=== PATIENT | female | born 1945 | race Caucasian/White ===

== ENCOUNTER → 2016-07-22 10:25 | Outpatient (CLI) | payer MEDICARE | END | disposition home or self-care (01) | LOC: D.CT 10:25 | DX: Q27.8 Other specified congenital malformations of peripheral vascular system (principal) ==

== ENCOUNTER 2019-09-29 08:40 | Outpatient (CLI) | payer MEDICARE ==
[~2019-09-29] VITALS: Ht 160 cm; Wt 47.7 kg
[2019-09-29] MEDS ORDERED: PREDNISONE20 MG PO (09:21)
[2019-09-29] MEDS ORDERED: LEVOFLOXACIN500 MG PO (09:21)
[2019-09-29] MEDS ORDERED: XANAX0.25 MG PO (09:22)
[2019-09-29] MEDS ORDERED: METOPROLOL TART25 MG PO (09:24)
[2019-09-29] MEDS ORDERED: PAXIL40 MG PO (09:25)
[2019-09-29] MEDS ORDERED: SPIRIVA18 MCG INH (09:26)
[2019-09-29] MEDS ORDERED: CRESTOR20 MG PO (09:26)
[2019-09-29] MEDS ORDERED: IPRAT-ALBUT 0.5-3 ML UPD (09:27)
[2019-09-29] MEDS ORDERED: CARTIA XT240 MG PO (09:27)
[2019-09-29] MEDS ORDERED: ZOFRAN8 MG PO (09:28)
[2019-09-29] MEDS ORDERED: PHENERGAN25 M1 PO (09:28)
[2019-09-29 09:33] VITALS: BP 110/41; Ht 160 cm; Wt 47.7 kg
[2019-09-29 09:39] LABS: ANION GAP 14.6 mmol/L (8-16); CALCIUM 9.6 mg/dL (8.5-10.1); CARBON DIOXIDE 27.1 mmol/L (21.0-32.0); CREATININE - SERUM 0.9 mg/dL (0.6-1.3); POTASSIUM - SERUM 3.7 mmol/L (3.5-5.1)
[2019-09-29 09:46] LABS: HEMATOCRIT 32.4 % (36.0-48.0); HEMOGLOBIN 9.5 g/dL (12-16); MCH 29.1 pg (26.0-34.0); MCHC 29.3 g/dL (31.0-37.0); MCV 99.4 fL (80.0-100.0); MEAN PLATELET VOLUME 8.6 fL (7.4-10.4); PLATELET COUNT 836 10x3/uL (130-400); RBC 3.26 10x6/uL (4.00-5.40); RDW 15.3 % (11.5-14.5); WBC 21.8 10x3/uL (4.8-10.8)
[2019-09-29 09:51] LABS: APTT 34.4 SECONDS (22.8-39.4); INR 1.16 (0.85-1.17); PROTIME 14.7 SECONDS (11.6-15.0)
--- NOTE | 2019-09-29 12:04 | NUR ---
1200-RECD TO ROOM FROM IR POST CT GUIDED THORACENTESIS. ALERT. IV PATENT. O2 ON AT 2L PER NC. RESP WITH EASE. DENIES PAIN/NAUSEA. R BACK DRESSING DRY AND INTACT.
--- NOTE | 2019-09-29 12:23 | NUR ---
1215-DOZES, AROUSES EASILY.
--- NOTE | 2019-09-29 12:51 | NUR ---
1245-FINGER FOOD TRAY TO ROOM. VSS. AWAKE AND ALERT. CL IN EASY REACH.VERY PLEASANT WITHOUT COMPLAINTS
[2019-09-29 13:11] LABS: ANISOCYTOSIS OCC; LYMPHOCYTES 3 % (15-50); MONOCYTES 10 % (2-11); NEUTROPHILS 87 % (40-80); PLATELET ESTIMATE INCREASED; ROULEAUX OCC
--- NOTE | 2019-09-29 13:28 | NUR ---
1315-TOLERATED TRAY. SLIGHT PAIN TO INCISION SITE. 08/21. VSS. XRAY HAS TAKEN CXR PER MD ORDERS. WILL CONTINUE TO MONITOR.
--- NOTE | 2019-09-29 14:49 | NUR ---
1415-VSS.DRESSING CDI.REPORTS DULL PAIN 3/10 TO INCISION SITE. VERY PLEASANT. REMOVED IV WITH CATH INTACT,DISPOSED INTO SHARPS.COVERED WITH GUAZE,SECURED WITH MEDIPORE TAPE. REVIEWED POST OPERATIVE INSTRUCTIONS VERBALIZED UNDERSTANDING
--- NOTE | 2019-09-29 14:50 | NUR ---
1439-ESCORTED OUT VIA W/C WITH EX AWAITING TO DRIVE HOME
[2019-09-29 15:58] LABS: EOS BF 1 %; MACROPHAGES BF 1 %; NEUT - BF 6 %
[2019-10-02 08:08] LABS: FUNGUS STAIN Final report (())
== END 2019-09-29 14:39 | disposition home or self-care (01) ==
LOC: D.SP 08:40 → D.CT 11:00 → D.SP 11:00
PROVIDERS: Radiology Diagnostic Radiology; ATTEND Internal Medicine Hematology & Oncology
DX: J90 Pleural effusion, not elsewhere classified (principal); J18.9 Pneumonia, unspecified organism; E86.0 Dehydration; D64.81 Anemia due to antineoplastic chemotherapy; C34.32 Malignant neoplasm of lower lobe, left bronchus or lung; D51.0 Vitamin B12 deficiency anemia due to intrinsic factor deficiency; I10 Essential (primary) hypertension; J44.9 Chronic obstructive pulmonary disease, unspecified

== ENCOUNTER 2019-09-30 17:26 | Inpatient (IN) | payer MEDICARE ==
[~2019-09-30] VITALS: Ht 160 cm; Wt 50.6 kg
[~2019-09-30 17:26] MED LIST: CARTIA XT240 MG PO; CRESTOR20 MG PO; IPRAT-ALBUT 0.5-3 ML UPD; LEVOFLOXACIN500 MG PO; METOPROLOL TART25 MG PO; PAXIL40 MG PO; PHENERGAN25 M1 PO; PREDNISONE20 MG PO; SPIRIVA18 MCG INH; XANAX0.25 MG PO; ZOFRAN8 MG PO
[2019-09-30 18:12] LABS: BASOPHILS 0 % (0-2); EOSINOPHILS 0.4 % (0-7); HEMATOCRIT 31.4 % (36.0-48.0); HEMOGLOBIN 9.2 g/dL (12-16); IMMATURE GRANULOCYTES 0.7 % (0-5); LYMPHOCYTES 5.3 % (15-50); MCH 29.1 pg (26.0-34.0); MCHC 29.3 g/dL (31.0-37.0); MCV 99.4 fL (80.0-100.0); MEAN PLATELET VOLUME 8.6 fL (7.4-10.4); NEUTROPHILS 83.6 % (40-80); RBC 3.16 10x6/uL (4.00-5.40); RDW 15.5 % (11.5-14.5)
[2019-09-30 18:13] LABS: PLATELET COUNT 616 10x3/uL (130-400); WBC 14.3 10x3/uL (4.8-10.8)
[2019-09-30 18:21] LABS: APTT 31.8 SECONDS (22.8-39.4); INR 1.1 (0.85-1.17); PROTIME 14.2 SECONDS (11.6-15.0)
[2019-09-30 19:14] VITALS: BP 125/59
[2019-09-30 19:20] LABS: CALC OSMOLALITY 280 mosm/kg (275-300); CALCIUM 8.6 mg/dL (8.5-10.1); CARBON DIOXIDE 23.6 mmol/L (21.0-32.0); CHLORIDE - SERUM 104 mmol/L (98-107); CREATININE - SERUM 0.9 mg/dL (0.6-1.3); GLUCOSE 93 mg/dL (74-106); SODIUM 140 mmol/L (136-145); UREA NITROGEN 17 mg/dL (7-18); eGFR NON AFRICAN AMERICAN 65 mL/min (90-120)
[2019-09-30 19:21] LABS: POTASSIUM - SERUM 4.5 mmol/L (3.5-5.1)
--- NOTE | 2019-09-30 19:30 | NUR ---
NOTED PT'S IV IN LEFT HAND HAD BECOME DISLODGED. CATHETER HANGING OUT. CATHETER WAS INTACT W/NO BLEEDING.
[2019-09-30 20:26] LABS: ALBUMIN 2.2 g/dL (3.4-5.0); ALKALINE PHOSPHATASE 72 U/L (30-120); ALT (SGPT) 17 U/L (10-68); BILIRUBIN - TOTAL 0.17 mg/dL (0.2-1.3); CKMB 0.3 U/L (0.0-3.6); CREATINE KINASE 24 UL (21-215); PRO BNP 4025 pg/mL (0-125); PROTEIN - SERUM 6.7 g/dL (6.4-8.2)
[2019-09-30 20:27] LABS: TROPONIN-I < 0.017 ng/mL (0.000-0.060)
[2019-09-30 20:46] VITALS: BP 130/66
--- NOTE | 2019-09-30 20:54 | NUR ---
ATTEMPTED TO CALL REPORT. NURSE UNAVAILABLE.
--- NOTE | 2019-09-30 21:01 | NUR ---
REPORT RECEIVED, PT CARE ASSUMED. AWAITING PT'S ARRIVAL TO ROOM 2123.
--- NOTE | 2019-09-30 21:17 | NUR ---
PT TO ROOM 2124 VIA STRETCHER ACCOMPANIED BY HOSPITAL STAFF.
[2019-09-30 23:54] VITALS: BP 117/46
[2019-10-01 01:32] VITALS: BP 117/46; BMI 18.8
[2019-10-01 04:00] VITALS: BP 127/61
--- NOTE | 2019-10-01 08:00 | NUR ---
HELPED AMBULATE PT TO BATHROOM WITH WALKER, STEADY GAIT NOTED. PT BACK TO BED. RR EVEN AND UNLABORED ON 2L NC. DENIES FUTHER NEEDS OR PAIN AT THIS TIME. CALL LIGHT WITHIN REACH. BED IN LOWEST POSITION. WILL CONTINUE TO MONITOR.
[2019-10-01 10:35] VITALS: BP 115/58
[2019-10-01 13:50] VITALS: BP 136/64
[2019-10-01 16:45] LABS: IRON 15 ug/dl (35-150); TOTAL IRON BIND CAPACITY 157 ug/dl (260-445); UNSAT IRON BIND CAPACITY 142 ug/dl (150-375)
[2019-10-01 16:46] LABS: % SATURATION 10 % (15-55)
--- NOTE | 2019-10-01 16:48 | NUR ---
I have reviewed this patient and I concur with the Shift Assessment completed by the Licensed Practical Nurse today this shift.
[2019-10-01 20:00] VITALS: BP 105/50
--- NOTE | 2019-10-01 21:38 | NUR ---
INITIAL ROUNDS COMPLETED AT 1915 HRS. PT DENIED ANY DISCOMFORT. ASSESSMENT COMPLETED AT 1950 HRS. 02 2LNC. ALERT AND ORIENTED TO PERSON, PLACE AND TIME. VASQUEZ. IV'S TO L WRIST AND RFA SL. BOTH PATENT. L CHEST INFUSAPORT NOTED. LUNGS DIMINISHED N BASES BILAT. DRESSING TO L BACK CLEAN, DRY AND INTACT. VASQUEZ. PALPABLE PERIPHERAL PULSES. PM MEDS GIVEN. PT CURRENTLY RESTING WITH EYES CLOSED. RESP EVEN AND REGULAR. SR UP X1, CALL LIGHT WITHIN REACH.
--- NOTE | 2019-10-01 23:34 | NUR ---
PT RESTING WTIH EYES CLOSED. RESP EVEN AND REGULAR. SR UP X1, CALL LIGHT WITHIN REACH.
--- NOTE | 2019-10-02 01:04 | NUR ---
PT RESTING WITH EYES CLOSED ON R SIDE. RESP EVEN AND REGULAR. SR UP X1, CALL LIGHT WITHIN REACH.
[2019-10-02 04:00] VITALS: BP 98/59
--- NOTE | 2019-10-02 04:22 | NUR ---
PT RESTING WITH EYES CLOSED. RESP EVEN AND REGULAR. SR UP X2, CALL LIGHT WITHIN REACH.
--- NOTE | 2019-10-02 06:19 | NUR ---
VSS THROUGHOUT NIGHT. PT DENIED ANY DISCOMFORT. NEEDS MET; WILL CONTINUE TO MONITOR.
[2019-10-02 06:36] LABS: BASOPHILS 0 % (0-2); EOSINOPHILS 0.7 % (0-7); HEMATOCRIT 29.3 % (36.0-48.0); HEMOGLOBIN 8.8 g/dL (12-16); IMMATURE GRANULOCYTES 0.4 % (0-5); LYMPHOCYTES 7.5 % (15-50); MCH 28.9 pg (26.0-34.0); MEAN PLATELET VOLUME 8.4 fL (7.4-10.4); MONOCYTES 9.1 % (2-11); NEUTROPHILS 82.3 % (40-80); PLATELET COUNT 574 10x3/uL (130-400); RBC 3.04 10x6/uL (4.00-5.40); WBC 13.1 10x3/uL (4.8-10.8)
[2019-10-02 06:49] LABS: ALBUMIN 1.9 g/dL (3.4-5.0); ANION GAP 10.8 mmol/L (8-16); BILIRUBIN - TOTAL 0.14 mg/dL (0.2-1.3); CALCIUM 8.6 mg/dL (8.5-10.1); CARBON DIOXIDE 25.8 mmol/L (21.0-32.0); CREATININE - SERUM 0.9 mg/dL (0.6-1.3); POTASSIUM - SERUM 3.6 mmol/L (3.5-5.1); PROTEIN - SERUM 6.3 g/dL (6.4-8.2)
[2019-10-02 07:05] LABS: MCV 96.4 fL (80.0-100.0)
--- NOTE | 2019-10-02 07:20 | NUR ---
RECIEVE REPORT. RESTING IN BED WITH EYES CLOSED. NO SIGNS OF DISTRESS. CONTINUE PLAN OF CARE AND SAFETY PRECAUTIONS.
[2019-10-02 08:00] VITALS: BP 108/42
[2019-10-02 14:03] VITALS: BP 85/34
[2019-10-02 14:24] VITALS: BMI 18.7
--- NOTE | 2019-10-02 16:28 | NUR ---
ALERT AND ORIENTED X4. SITTING UP IN BED. CONSENTS FOR BRONCHOSCOPY SIGNED ON CHART. DENIES ANY NEEDS AT THIS TIME. CONTINUE PLAN OF CARE AND SAFETY PRECAUTIONS.
[2019-10-02 18:27] VITALS: BP 87/63
[2019-10-02 22:09] VITALS: BP 110/48
[2019-10-03 00:54] VITALS: BP 96/40
--- NOTE | 2019-10-03 03:32 | NUR ---
RESTING WITH EYES CLOSED, RESPERATIONS EVEN, NO S/S DISTRESS NOTED.
[2019-10-03 04:34] LABS: BASOPHILS 0 % (0-2); EOSINOPHILS 0.1 % (0-7); HEMATOCRIT 28.4 % (36.0-48.0); HEMOGLOBIN 8.4 g/dL (12-16); IMMATURE GRANULOCYTES 0.4 % (0-5); LYMPHOCYTES 4.8 % (15-50); MCH 28.8 pg (26.0-34.0); MCHC 29.6 g/dL (31.0-37.0); MCV 97.3 fL (80.0-100.0); MEAN PLATELET VOLUME 8.6 fL (7.4-10.4); MONOCYTES 7.1 % (2-11); NEUTROPHILS 87.6 % (40-80); PLATELET COUNT 549 10x3/uL (130-400); RBC 2.92 10x6/uL (4.00-5.40); RDW 15.1 % (11.5-14.5); WBC 16.1 10x3/uL (4.8-10.8)
[2019-10-03 04:57] LABS: ALBUMIN 1.9 g/dL (3.4-5.0); ANION GAP 11.7 mmol/L (8-16); CARBON DIOXIDE 25.2 mmol/L (21.0-32.0); POTASSIUM - SERUM 3.9 mmol/L (3.5-5.1); PROTEIN - SERUM 6.1 g/dL (6.4-8.2)
[2019-10-03 04:58] LABS: BILIRUBIN - TOTAL 0.08 mg/dL (0.2-1.3)
[2019-10-03 05:05] VITALS: BP 104/40
[2019-10-03 09:31] VITALS: BP 118/53
--- NOTE | 2019-10-03 10:19 | NUR ---
I have reviewed this patient and I concur with the Shift Assessment completed by the Licensed Practical Nurse today this shift.
[2019-10-03 10:44] LABS: BILIRUBIN NEGATIVE (NEGATIVE); GLUCOSE NEGATIVE (NEGATIVE); KETONE NEGATIVE (NEGATIVE); NITRITE NEGATIVE (NEGATIVE); SPECIFIC GRAVITY 1.015 (1.005-1.020); UROBILINOGEN NORMAL (NORMAL)
[2019-10-03 12:24] VITALS: BP 109/59
--- NOTE | 2019-10-03 13:09 | EC ---
PATIENT:PRATEEK VELEZ DATE OF SERVICE: 09/30/19 SEX: F MEDICAL RECORD: [id number] DATE OF : [birth year] LOCATION:D.M2 D.212 AGE OF PATIENT: 74 ADMISSION DATE: 09/30/19 REFERRING PHYSICIAN: INTERPRETING PHYSICIAN: LATRICIA LAMBERT MD ECHOCARDIOGRAM REPORT ECHO CHARGES 4 ECHO COMPLETE Date: 10/02/19 CLINICAL DIAGNOSIS: DYSPNEA ECHOCARDIOGRAPHIC MEASUREMENTS (adult normal given) AC root (d.<3.7cm) 2.7 cm LV Septum d (<1.2 cm> 1.4 cm Valve Excursion 1.5 cm LV Septum (systole) 1.9 cm Left Atria (s.<4.0cm> 4.1 cm LVPW d(<1.2cm) 1.1 cm RV (d.<2.3cm) 2.1 cm LVPW (sytole) 1.9 cm LV diastole(<5.6CM) 4.4 cm MV E-F(>70mm/sec) cm LV systole 1.7 cm LVOT Diameter 1.5 cm MV exc.(>10mm) cm Est.ejection fraction (50-75%) % DOPPLER: LVIT cm/sec A 110 cm/sec E 133 cm/sec LA cm/sec RVSP 56.2 mmHg LVOT 103 cm/sec AOP1/2T 605.0m/s Asc. Ao 215 cm/sec RVOT 62.0 cm/sec RA cm/sec PA 102 cm/sec AV Gradient Peak 19.0 mmHg AV Mean 8.8 mmHg AV Area 0.8 cm MV Gradient Peak 9.7 mmHg MV Mean 2.5 mmHg MV Area cm COMMENTS: Gritting Machine Operator: 1 SHORTY BUNNOE Skatesman: 3 Dr. Brady TAPE# PACS Pericardial Effusion Y DATE OF SERVICE: Adequate 2D, color flow imaging, spectral Doppler, and M-Mode. LVH is present. LV internal dimension is normal. Wall motion is normal. EF is greater than or equal to 55%. Aortic valve is sclerotic; however, there is no evidence of stenosis by Doppler interrogation. There is moderate AI by color flow imaging. Left atrium is upper limits of normal and minimally dilated at 4.1 cm. Mitral valve shows no prolapse. Trace MR. Right-sided chambers are grossly normal. Trace TR. ECHOCARDIOGRAM REPORT [id number] PRATEEK VELEZ TRANSINT:[id number] Voice Confirmation ID: [id number] DOCUMENT ID: [id number] LATRICIA LAMBERT MD at 1309 CC: [id number] DICTATION DATE: 10/02/191116 PREPARER: 10/02/19 1157 ADM IN [facility] [address] [place] [address]
[2019-10-03 15:04] VITALS: BP 95/38
--- NOTE | 2019-10-03 15:24 | NUR ---
OT NOTE: PT COMPLETED UNSUPPORTED SITTING WITH SPV. PT COMPLETED BUE AROM WITH FUNCTIONAL TASKS. PT COMPLETED SELF FEEDING WITH SET UP.PT COMPLETED FACE HYGIENE WITH SET UP. [phone] THANK YOU,JEREMI WEAVER
[2019-10-03 19:52] VITALS: BP 113/51
[2019-10-04] VITALS: BP 118/48
--- NOTE | 2019-10-04 00:52 | NUR ---
I have reviewed this patient and I concur with the Shift Assessment completed by the Licensed Practical Nurse today this shift.
--- NOTE | 2019-10-04 03:53 | NUR ---
RESTING WITH EYES CLOSED, RESPERATIONS EVEN, NO S/S DISTRESS NOTED.
[2019-10-04 04:00] VITALS: BP 135/51
[2019-10-04 05:31] LABS: BASOPHILS 0.1 % (0-2); EOSINOPHILS 0.8 % (0-7); HEMOGLOBIN 8.3 g/dL (12-16); IMMATURE GRANULOCYTES 0.7 % (0-5); LYMPHOCYTES 5.1 % (15-50); MCHC 29.6 g/dL (31.0-37.0); MCV 97.9 fL (80.0-100.0); MEAN PLATELET VOLUME 8.1 fL (7.4-10.4); MONOCYTES 9.8 % (2-11); NEUTROPHILS 83.5 % (40-80); RBC 2.86 10x6/uL (4.00-5.40); RDW 15.5 % (11.5-14.5); WBC 13.8 10x3/uL (4.8-10.8)
[2019-10-04 05:42] LABS: PLATELET COUNT 418 10x3/uL (130-400)
[2019-10-04 05:56] LABS: ALBUMIN 1.8 g/dL (3.4-5.0); ANION GAP 9.8 mmol/L (8-16); BILIRUBIN - TOTAL 0.09 mg/dL (0.2-1.3); CALCIUM 7.6 mg/dL (8.5-10.1); CARBON DIOXIDE 26.8 mmol/L (21.0-32.0); CREATININE - SERUM 0.8 mg/dL (0.6-1.3); MAGNESIUM - SERUM 1.7 mg/dL (1.8-2.4); POTASSIUM - SERUM 3.6 mmol/L (3.5-5.1); PROTEIN - SERUM 5.9 g/dL (6.4-8.2)
--- NOTE | 2019-10-04 07:14 | NUR ---
REPORT RECEIVED FROM CLINICAL DOCUMENTATION DEVELOPER ANDPATIENT CARE ASSUMED. PATIENT LAYING IN BED ON BACK WITH HOB ELEVATED 20 DEGREES. PATIENT IS AWAKE, ALERT AND ORIENTED X 4. PATIENT DENIES ANY NEEDS 0R PAIN. WILL CONTINUE WITH PLAN OF CARE. SR UP X 2 BED IN LOW POSITION AND CALL LIGHT IN REACH.
[2019-10-04 09:11] VITALS: BP 111/53
--- NOTE | 2019-10-04 10:15 | NUR ---
PATIENT IS STABLE AND VSS. PATIENT DENIES ANY NEEDS OR PAIN. DR MADDOX IN ROOM. THIS NURSE RECEIVED INSTRUCTIONS TO CONFIRM WITH LAB REGARDING BRONCH BS FROM YESTERDAY AND GET PET SCAN RESULTS FROM [facility]. CONTACTED LAB AND SPECIMEN SLIDE BEING PROCESSED NOW. FAX TO [facility] SENT FOR RESULTS. WILL CONTINUE TO MONITOR. SR UP X 2 BED IN LOW POSITION AND CALL LIGHT IN REACH.
--- NOTE | 2019-10-04 10:21 | NUR ---
Nutrition Follow-up: S/p bronch yesterday. Pt reports being sore and a feeling of tightness following procedure yesterday. Did not eat breakfast this AM; only drank coffee and juice. Denies N/V. Refuses Ensure. Diet: Regular Wt: 111.3# (10/02) Last BM: 10/02 per pt Labs noted: Ca 7.6, Mg 1.7, Alb 1.8 Meds noted: Folate, Protonix, Prednisone -Encourage PO intake and honor food preferences. -Pt may benefit from appetite stimulant. -Monitor wt. -RD following.
[2019-10-04 13:09] LABS: ACID FAST SMEAR Negative (()); AFB SPECIMEN PROCESSING Concentration (())
[2019-10-04 13:09] LABS: ACID FAST SMEAR Negative (()); AFB SPECIMEN PROCESSING Concentration (())
--- NOTE | 2019-10-04 13:58 | NUR ---
OT NOTE: BED MOB WITH SPV; ABLE TO PERFORM LONG SITTING IN BED TO SERGIO SOCKS WITHOUT ASSIST; AMB TO BATHROOM WITH WALKER AND CGA; TRANSFERS WITH CGA; HYGIENE AND CLOTHING MGMT WITH CGA. SIMPLE GROOMING TASKS WITH SETUP; STANDING BALANCE ACT WITH WALKER AND CGA. CONTINUES WITH SOB DURING FUNCTIONAL ACT. REBECA MCNEAL, OTR/L [phone]
--- NOTE | 2019-10-04 14:23 | NUR ---
OT NOTE: PT COMPLETED BED MOB WITH MIN A/CGA. PT COMPLETED FACE HYGIENE WITH SET UP. [phone] THANK YOU,JEREMI WEAVER
--- NOTE | 2019-10-04 14:53 | MORECARE ---
CASE MANAGEMENT DISCHARGE SUMMARY PATIENT: PRATEEK VELEZ UNIT: [id number] ADM DATE: 09/30/19 AGE: 74 : 45 SEX: F ROOM/BED: D.1177 AUTHOR: YISEL CULLEN PHYSICIAN: REFERRING PHYSICIAN: RADHA VANN MD DATE OF SERVICE: 10/04/19 Discharge Plan Patient Name: PRATEEK VELEZ Facility: [facility]:[place] : 1945 Planned Disposition: Home Anticipated Discharge Date: Discharge Date: Expected LOS: Initial Reviewer: [email or web address] Initial Review Date: 09/30/2019 Generated: 10/04/19 3:52 pm Coverage Notice Reviewer: [id number] Yajaira Patterson Notice Issued Date-Time: 10/04/2019 14:15 Notice Type: IM Discharge Notice Notice Delivered To: Patient Relationship to Patient: Self School Attendance Secretary Name: Delivery Method: HAND - Hand Delivered Alisha Days: Prior Verbal Notification: Recipient Understood Notice: Yes Recipient Signature: Yes Med Rec Note Co-signed by Attending: Coverage Notice Comment: Patient Name: PRATEEK VELEZ Page [phone] at 1453 All edits/amendments must be made on the electronic document DICTATION DATE: 10/04/191451 EXPERIENCE SPECIALIST: LAURA 10/04/191451 RPT#: [id number] DC DATE: STATUS: ADM IN [place] [address] [place] [address] END OF REPORT
--- NOTE | 2019-10-04 15:00 | MORECARE ---
CASE MANAGEMENT DISCHARGE SUMMARY PATIENT: PRATEEK VELEZ UNIT: [id number] ADM DATE: 09/30/19 AGE: 74 : 45 SEX: F ROOM/BED: D.7254 AUTHOR: YISEL CULLEN PHYSICIAN: REFERRING PHYSICIAN: RADHA VANN MD DATE OF SERVICE: 10/04/19 Discharge Plan Patient Name: PRATEEK VELEZ Facility: [facility]:[place] : 1945 Planned Disposition: Home Anticipated Discharge Date: Discharge Date: Expected LOS: Initial Reviewer: [email or web address] Initial Review Date: 09/30/2019 Generated: 10/04/19 4:00 pm DCPIA - Discharge Planning Initial Assessment Updated by [email or web address]: Julia Patterson on 10/04/19 2:54 pm * Is the patient Alert and Oriented? Yes * How many steps to enter\exit or inside your home? * PCP ONIEL * [facility] * Preadmission Environment Home with Family * ADLs Independent * Other Equipment HOME / PORTABLE 02- LINCARE, NEBULIZER, WALKER * List name and contact numbers for known caregivers / representatives who currently or will assist patient after discharge: LIBAN DO - [phone] * Verbal permission to speak to the caregivers and representatives has been obtained from the patient. Yes * Community resources currently utilized None * Additional services required to return to the preadmission environment? No * Can the patient safely return to the preadmission environment? Yes * Has this patient been hospitalized within the prior 30 days at any hospital? No Coverage Notice Reviewer: [id number] - Julia Patterson Notice Issued Date-Time: 10/04/2019 14:15 Notice Type: IM Discharge Notice Notice Delivered To: Patient Relationship to Patient: Self Kitchen Food Assembler Name: Delivery Method: HAND - Hand Delivered Alisha Days: Prior Verbal Notification: Recipient Understood Notice: Yes Recipient Signature: Yes Med Rec Note Co-signed by Attending: Coverage Notice Comment: Last DP export: 10/04/19 1:53 p Patient Name: PRATEEK VELEZ Page [id number] at 1500 All edits/amendments must be made on the electronic document DICTATION DATE: 10/04/191499 PUBLIC HEALTH DENTIST: LAURA 10/04/191499 RPT#: [id number] DC DATE: STATUS: ADM IN [facility] [address] [place] [address] END OF REPORT
--- NOTE | 2019-10-04 15:07 | MORECARE ---
CASE MANAGEMENT DISCHARGE SUMMARY PATIENT: PRATEEK VELEZ UNIT: [id number] ADM DATE: 09/30/19 AGE: 74 : 45 SEX: F ROOM/BED: D.8459 AUTHOR: SUBHASH,DOC PHYSICIAN: REFERRING PHYSICIAN: RADHA VANN MD DATE OF SERVICE: 10/04/19 Discharge Plan Patient Name: PRATEEK VELEZ Facility: [facility]:[place] : 1945 Planned Disposition: Home Anticipated Discharge Date: Discharge Date: Expected LOS: Initial Reviewer: [email or web address] Initial Review Date: 09/30/2019 Generated: 10/04/19 4:07 pm Comments DCP- Discharge Planning Updated by [email or web address]: Julia Patterson on 10/04/19 2:[address] Patient Name: PRATEEK VELEZ Admission Status: ER Accout number: [id number] Admission Date: 09-30-2019 : 1945 Admission Diagnosis:DYSPNEA, UNSPECIFIED Attending: RADHA VANN Current LOS: 4 Anticipated DC Date: Planned Disposition: Home Primary Insurance: [employer] CHOICE PPO MCR ADVANT Discharge Planning Comments: CM spoke with patient to complete initial dc planning assessment. CM educated patient on the CM role and verbal consent given by patient to complete assessment. Patient lives currently with a friend and plans to return there upon discharge. CM discussed availability of home health, rehab services, and medical equipment. Patient has home / portable 02 ([facility]), Nebulizer and a walker. Patient doesn't currently have any HHS. Patient will have friend drive her home upon discharge. Patient denies any known discharge needs at this time. CM will continue to follow and will assist as needed with dc plans/needs. School Director: Julia Patterson DCPIA - Discharge Planning Initial Assessment Updated by [email or web address]: Julia Patterson on 10/04/19 2:54 pm * Is the patient Alert and Oriented? Yes * How many steps to enter\exit or inside your home? * PCP ONIEL * Pharmacy [facility] * Preadmission Environment Home with Family * ADLs Independent * Other Equipment HOME / PORTABLE 02- LINCARE, NEBULIZER, WALKER * List name and contact numbers for known caregivers / representatives who currently or will assist patient after discharge: LIBAN DO - [phone] * Verbal permission to speak to the caregivers and representatives has been obtained from the patient. Yes * Community resources currently utilized None * Additional services required to return to the preadmission environment? No * Can the patient safely return to the preadmission environment? Yes * Has this patient been hospitalized within the prior 30 days at any hospital? No Coverage Notice Reviewer: [email or web address] Yajaira Patterson Notice Issued Date-Time: 10/04/2019 14:15 Notice Type: IM Discharge Notice Notice Delivered To: Patient Relationship to Patient: Self Technical Rep Name: Delivery Method: HAND - Hand Delivered Alisha Days: Prior Verbal Notification: Recipient Understood Notice: Yes Recipient Signature: Yes Med Rec Note Co-signed by Attending: Coverage Notice Comment: Last DP export: 10/04/19 2:00 p Patient Name: PRATEEK VELEZ Page [id number] at 1507 All edits/amendments must be made on the electronic document DICTATION DATE: 10/04/19 1507 MANGA ARTIST: LAURA 10/04/19 1507 RPT#: [id number] DC DATE: STATUS: ADM IN [facility] [address] [place] [address] END OF REPORT
--- NOTE | 2019-10-04 15:21 | MORECARE ---
CASE MANAGEMENT DISCHARGE SUMMARY PATIENT: PRATEEK VELEZ UNIT: [id number] ADM DATE: 09/30/19 AGE: 74 : 45 SEX: F ROOM/BED: D.1785 AUTHOR: SUBHASH,DOC PHYSICIAN: REFERRING PHYSICIAN: RADHA VANN MD DATE OF SERVICE: 10/04/19 Discharge Plan Patient Name: PRATEEK VELEZ Facility: [facility]:[place] : 1945 Planned Disposition: Home Anticipated Discharge Date: Discharge Date: Expected LOS: Initial Reviewer: [email or web address] Initial Review Date: 09/30/2019 Generated: 10/04/19 4:20 pm Comments DCP- Discharge Planning Updated by [id number]: Julia Patterson on 10/04/19 2:[address] Patient Name: PRATEEK VELEZ Admission Status: ER Accout number: [id number] Admission Date: 09-30-2019 : 1945 Admission Diagnosis:DYSPNEA, UNSPECIFIED Attending: RADHA VANN Current LOS: 4 Anticipated DC Date: Planned Disposition: Home Primary Insurance: [employer] CHOICE PPO MCR ADVANT Discharge Planning Comments: CM spoke with patient to complete initial dc planning assessment. CM educated patient on the CM role and verbal consent given by patient to complete assessment. Patient lives currently with a friend and plans to return there upon discharge. CM discussed availability of home health, rehab services, and medical equipment. Patient has home / portable 02 ([facility]), Nebulizer and a walker. Patient doesn't currently have any HHS. Patient will have friend drive her home upon discharge. Patient denies any known discharge needs at this time. CM will continue to follow and will assist as needed with dc plans/needs. Hand Rounder: Julia Patterson Appended by Julia Patterson on 10/04/2019 15:15 CDT: D/C IMM signed 10/04/19 @ 1415 DCPIA - Discharge Planning Initial Assessment Updated by [id number]: Julia Patterson on 10/04/19 2:54 pm * Is the patient Alert and Oriented? Yes * How many steps to enter\exit or inside your home? * PCP ONIEL * Pharmacy [facility] * Preadmission Environment Home with Family * ADLs Independent * Other Equipment HOME / PORTABLE 02- LINCARE, NEBULIZER, WALKER * List name and contact numbers for known caregivers / representatives who currently or will assist patient after discharge: LIBAN DO - [phone] * Verbal permission to speak to the caregivers and representatives has been obtained from the patient. Yes * Community resources currently utilized None * Additional services required to return to the preadmission environment? No * Can the patient safely return to the preadmission environment? Yes * Has this patient been hospitalized within the prior 30 days at any hospital? No Coverage Notice Reviewer: [id number] Yajaira Patterson Notice Issued Date-Time: 10/04/2019 14:15 Notice Type: IM Discharge Notice Notice Delivered To: Patient Relationship to Patient: Self Hot Wire Glass Tube Cutter Name: Delivery Method: HAND - Hand Delivered Alisha Days: Prior Verbal Notification: Recipient Understood Notice: Yes Recipient Signature: Yes Med Rec Note Co-signed by Attending: Coverage Notice Comment: Last DP export: 10/04/19 2:07 p Patient Name: PRATEEK VELEZ Page 64107 at 1521 All edits/amendments must be made on the electronic document DICTATION DATE: 10/04/19 152 RELOCATION COUNSELOR: LAURA 10/04/19 1520 RPT#: [id number] DC DATE: STATUS: ADM IN [facility] [address] [place] [address] END OF REPORT
--- NOTE | 2019-10-04 15:27 | NUR ---
PATIENT STABLE AND UNCHANGED. WILL CONTINUE TO MONITOR. SR UP X 2 BED IN LOW POSITION AND CALL LIGHT IN REACH.
[2019-10-04 17:22] VITALS: Ht 160 cm; Wt 50.6 kg
--- NOTE | 2019-10-04 19:14 | NUR ---
REPORT RECIEVED AND ROUNDING COMPLETE. PATIENT LAYING IN BED IN HIGH FOWLERS, PATIENT HAS A LEFT FOREARM PIV THAT IS SALINE LOCKED, PIV PATENT AND FLUSHES EASILY, NO S/SX OF INFILTRATION. WEARINF NASAL CANNULA WITH O2 AT 2L WHICH IS A HOME DOSE. PATIENT STATES SHE HAS NO NEEDS AT THIS TIME.CALL LIGHT WITHNIN REACH AND BED IN LOWEST LOCKED POSITION.
[2019-10-04 20:00] VITALS: BP 107/47
[2019-10-04 23:44] VITALS: BP 103/40
[2019-10-05 04:00] VITALS: BP 109/40
[2019-10-05 06:31] LABS: BASOPHILS 0 % (0-2); EOSINOPHILS 0.7 % (0-7); HEMATOCRIT 27.1 % (36.0-48.0); HEMOGLOBIN 8.1 g/dL (12-16); IMMATURE GRANULOCYTES 0.6 % (0-5); LYMPHOCYTES 6.1 % (15-50); MCH 28.7 pg (26.0-34.0); MCHC 29.9 g/dL (31.0-37.0); MCV 96.1 fL (80.0-100.0); MEAN PLATELET VOLUME 8.1 fL (7.4-10.4); MONOCYTES 11.2 % (2-11); NEUTROPHILS 81.4 % (40-80); PLATELET COUNT 415 10x3/uL (130-400); RBC 2.82 10x6/uL (4.00-5.40); RDW 15.6 % (11.5-14.5); WBC 12.3 10x3/uL (4.8-10.8)
[2019-10-05 06:43] LABS: ALBUMIN 1.9 g/dL (3.4-5.0); BILIRUBIN - TOTAL 0.12 mg/dL (0.2-1.3); CALCIUM 8.1 mg/dL (8.5-10.1); CARBON DIOXIDE 29.5 mmol/L (21.0-32.0); CREATININE - SERUM 0.8 mg/dL (0.6-1.3); POTASSIUM - SERUM 3.5 mmol/L (3.5-5.1)
[2019-10-05 08:45] VITALS: BP 115/47
--- NOTE | 2019-10-05 12:08 | NUR ---
OT NOTE: PT INITALLY DOING WELL; BED MOB WITH SPV; TRANSFERS WITH SPV; SET UP FOR DONNING SOCKS AND GOWN. TOILETING WITH CGA. HOWEVER, UPON AMB INTO HALLWAY WITH GAIT BELT AND 02, SHE WAS ONLY ABLE TO AMB APPROX 40-50 FT BEFORE BECOMING VERY FATIGUED. 02 SAT AT 90% WITH USE OF 02..RECOUPERATED QUICKLY BACK UP TO 94%. WANTED TO SIT UP IN CHAIR. REBECA MCNEAL, OTR/L [phone]
[2019-10-05 14:15] VITALS: BP 113/45
--- NOTE | 2019-10-05 15:34 | NUR ---
OT NOTE: PT COMPLETED SUPINE TO SIT WITH CGA. PT COMPLETED EOB SITTING WITH SBA. PT COMPLETED SIT TO STAND WITH CGA. PT COMPLETED BUE AROM EXS AT EOB . PT EXHIBITED SOB AND STATED SHE WAS DIZZY. NOTIFIED NURSING. [phone] THANK YOU,JEREMI WEAVER
[2019-10-05 18:16] VITALS: BP 101/53
--- NOTE | 2019-10-05 18:17 | NUR ---
REPORT RECEIVED FROM DISTRIBUTION CENTER MANAGER AND PATIENT CARE ASSUMED. PATIENT LAYING IN BED ON RT SIDE WITH EYES CLOSED AND BREATHING EVENLY. WILL CONTINUE TO MONITOR. SR UP X 2 BED IN LOW POSITION AND CALL LIGHT IN REACH.
[2019-10-05 20:00] VITALS: BP 116/55
[2019-10-06] VITALS: BP 101/35
--- NOTE | 2019-10-06 02:57 | NUR ---
I have reviewed this patient and I concur with the Shift Assessment completed by the Licensed Practical Nurse today this shift.
[2019-10-06 04:00] VITALS: BP 100/40
--- NOTE | 2019-10-06 04:15 | NUR ---
RESTING WITH EYES CLOSED, RESPERATIONS EVEN, NO S/S DISTRESS NOTED.
[2019-10-06 05:56] LABS: BASOPHILS 0.1 % (0-2); EOSINOPHILS 0.3 % (0-7); HEMATOCRIT 27.7 % (36.0-48.0); HEMOGLOBIN 8.3 g/dL (12-16); IMMATURE GRANULOCYTES 0.7 % (0-5); LYMPHOCYTES 4.1 % (15-50); MCH 29.3 pg (26.0-34.0); MCV 97.9 fL (80.0-100.0); MEAN PLATELET VOLUME 8.3 fL (7.4-10.4); MONOCYTES 7.8 % (2-11); PLATELET COUNT 411 10x3/uL (130-400); RBC 2.83 10x6/uL (4.00-5.40); RDW 16.1 % (11.5-14.5)
[2019-10-06 06:25] LABS: ANION GAP 10.4 mmol/L (8-16); CARBON DIOXIDE 29.1 mmol/L (21.0-32.0); CREATININE - SERUM 0.9 mg/dL (0.6-1.3); POTASSIUM - SERUM 3.5 mmol/L (3.5-5.1); PROTEIN - SERUM 5.6 g/dL (6.4-8.2)
[2019-10-06 06:40] LABS: BILIRUBIN - TOTAL 0.05 mg/dL (0.2-1.3)
--- NOTE | 2019-10-06 07:10 | NUR ---
REPORT RECEIVED FROM TOP WADDY AND PATIENT CARE ASSUMED. PATIENT LAYING IN BED ON RT SIDE WITH EYES CLOSED AND BREATHING EVENLY. WILL CONTINUE WITH PLAN OF CARE. SR UP X 2 BED IN LOW POSITION AND CALL LIGHT IN REACH.
[2019-10-06 08:36] VITALS: BP 159/70
[2019-10-06] MEDS ORDERED: LEVOFLOXACIN500 MG PO (11:25)
--- NOTE | 2019-10-06 12:27 | MORECARE ---
CASE MANAGEMENT DISCHARGE SUMMARY PATIENT: PRATEEK VELEZ UNIT: [id number] ADM DATE: 09/30/19 AGE: 74 : 45 SEX: F ROOM/BED: D.0768 AUTHOR: SUBHASH,DOC PHYSICIAN: REFERRING PHYSICIAN: RADHA VANN MD DATE OF SERVICE: 10/06/19 Discharge Plan Patient Name: PRATEEK VELEZ Facility: [facility]:[place] : 1945 Planned Disposition: Home Anticipated Discharge Date: Discharge Date: Expected LOS: Initial Reviewer: [email or web address] Initial Review Date: 09/30/2019 Generated: 10/06/19 1:27 pm Comments DCP- Discharge Planning Updated by [email or web address]: Janice Briones on 10/06/19 11:[address] Patient Name: PRATEEK VELEZ Encounter No: [id number] : 1945 Primary Insurance: HUMANA [employer] PPO MCR ADVANT Anticipated DC Date: Planned Disposition: Home External Planned Provider: : DCP follow-up note: Patient and family in agreement with discharge plan. No changes to plan. Case management will follow and assist as needed. Janice Briones DCP- Discharge Planning Updated by [id number]: Julia Patterson on 10/04/19 2:[address] Patient Name: PRATEEK VELEZ Admission Status: ER Accout number: [id number] Admission Date: 09-30-2019 : 1945 Admission Diagnosis:DYSPNEA, UNSPECIFIED Attending: RADHA VANN Current LOS: 4 Anticipated DC Date: Planned Disposition: Home Primary Insurance: [employer]MANA CHOICE PPO MCR ADVANT Discharge Planning Comments: CM spoke with patient to complete initial dc planning assessment. CM educated patient on the CM role and verbal consent given by patient to complete assessment. Patient lives currently with a friend and plans to return there upon discharge. CM discussed availability of home health, rehab services, and medical equipment. Patient has home / portable 02 ([facility]), Nebulizer and a walker. Patient doesn't currently have any HHS. Patient will have friend drive her home upon discharge. Patient denies any known discharge needs at this time. CM will continue to follow and will assist as needed with dc plans/needs. Bilingual Recruiter: Julia Patterson Appended by Julia Patterson on 10/04/2019 15:15 CDT: D/C IMM signed 10/04/19 @ 1415 DCPIA - Discharge Planning Initial Assessment Updated by [email or web address]: Julia Patterson on 10/04/19 2:54 pm * Is the patient Alert and Oriented? Yes * How many steps to enter\exit or inside your home? * PCP ONIEL * Pharmacy [facility] [place] * Preadmission Environment Home with Family * ADLs Independent * Other Equipment HOME / PORTABLE 02- LINCARE, NEBULIZER, WALKER * List name and contact numbers for known caregivers / representatives who currently or will assist patient after discharge: LIBAN DO - [phone] * Verbal permission to speak to the caregivers and representatives has been obtained from the patient. Yes * Community resources currently utilized None * Additional services required to return to the preadmission environment? No * Can the patient safely return to the preadmission environment? Yes * Has this patient been hospitalized within the prior 30 days at any hospital? No Coverage Notice Reviewer: [id number] - Julia Patterson Notice Issued Date-Time: 10/04/2019 14:15 Notice Type: IM Discharge Notice Notice Delivered To: Patient Relationship to Patient: Self Automatic Pilot Mechanic Name: Delivery Method: HAND - Hand Delivered Alisha Days: Prior Verbal Notification: Recipient Understood Notice: Yes Recipient Signature: Yes Med Rec Note Co-signed by Attending: Coverage Notice Comment: Last DP export: 10/04/19 2:21 p Patient Name: PRATEEK VELEZ Page [phone] at 1227 All edits/amendments must be made on the electronic document DICTATION DATE: 10/06/19 1227 LACE PINNER: LAURA 10/06/19 1227 RPT#: [id number] DC DATE: STATUS: ADM IN [facility] [address] [place] [address] END OF REPORT
--- NOTE | 2019-10-06 12:35 | NUR ---
OT NOTE: PT FEELING MUCH BETTER TODAY. SHE HAD RECEIVED A SHOWER EARLIER. REPORTED THAT SHE GOT GOOD SLEEP LAST NIGHT AND GOOD MEDICAL REPORT. SHE WAS AMB IN ROOM WITH WALKER WITH SPV/MOD I; AMB GREATER THAN 150 FT WITH WALKER AND 02 FOR ENDURANCE. INDEP WITH ALL BED MOB AND TRANSFERS. PT HOPES TO GET TO GO HOME TODAY. REBECA MCNEAL, OTR/L [phone]
--- NOTE | 2019-10-06 15:30 | NUR ---
OT NOTE: PT COMPLETED SIT TO STAND WITH SBA/CGA. PT COMPLETED SIDE STEPS WITH CGA. PT COMPLETED BUE AROM EXS AT EOB WITH SBA. PT COMPLETED HAIR GROOMING WITH SET UP AT EOB. [phone] THANK YOU,JEREMI WEAVER
--- NOTE | 2019-10-08 16:09 | MORECARE ---
CASE MANAGEMENT DISCHARGE SUMMARY PATIENT: PRATEEK VELEZ UNIT: [id number] ADM DATE: 09/30/19 AGE: 74 : 45 SEX: F ROOM/BED: D.6754 AUTHOR: SUBHASH,DOC PHYSICIAN: REFERRING PHYSICIAN: RADHA VANN MD DATE OF SERVICE: 10/08/19 Discharge Plan Patient Name: PRATEEK VELZE Facility: [facility]:[place] : 1945 Planned Disposition: Home Anticipated Discharge Date: Discharge Date: 10/06/2019 Expected LOS: Initial Reviewer: [email or web address] Initial Review Date: 09/30/2019 Generated: 10/08/19 5:09 pm Comments DCP- Discharge Planning Updated by [email or web address]: Janice Briones on 10/06/19 11:[address] Patient Name: PRATEEK VELEZ Encounter No: [id number] : 1945 Primary Insurance: HUMANA CHOICE PPO MCR ADVANT Anticipated DC Date: Planned Disposition: Home External Planned Provider: : DCP follow-up note: Patient and family in agreement with discharge plan. No changes to plan. Case management will follow and assist as needed. Janice Briones DCP- Discharge Planning Updated by [id number]: Julia Patterson on 10/04/19 2:[address] Patient Name: PRATEEK VELEZ Admission Status: ER Accout number: [id number] Admission Date: 09-30-2019 : 1945 Admission Diagnosis:DYSPNEA, UNSPECIFIED Attending: RADHA VANN Current LOS: 4 Anticipated DC Date: Planned Disposition: Home Primary Insurance: HUMANA CHOICE PPO MCR ADVANT Discharge Planning Comments: CM spoke with patient to complete initial dc planning assessment. CM educated patient on the CM role and verbal consent given by patient to complete assessment. Patient lives currently with a friend and plans to return there upon discharge. CM discussed availability of home health, rehab services, and medical equipment. Patient has home / portable 02 ([employer]), Nebulizer and a walker. Patient doesn't currently have any HHS. Patient will have friend drive her home upon discharge. Patient denies any known discharge needs at this time. CM will continue to follow and will assist as needed with dc plans/needs. Broadcast Engineer: Julia Patterson Appended by Julia Patterson on 10/04/2019 15:15 CDT: D/C IMM signed 10/04/19 @ 1415 DCPIA - Discharge Planning Initial Assessment Updated by [email or web address]: Julia Patterson on 10/04/19 2:54 pm * Is the patient Alert and Oriented? Yes * How many steps to enter\exit or inside your home? * PCP ONIEL * Pharmacy [facility] * Preadmission Environment Home with Family * ADLs Independent * Other Equipment HOME / PORTABLE 02- [employer], NEBULIZER, WALKER * List name and contact numbers for known caregivers / representatives who currently or will assist patient after discharge: LIBAN DO - [phone] * Verbal permission to speak to the caregivers and representatives has been obtained from the patient. Yes * Community resources currently utilized None * Additional services required to return to the preadmission environment? No * Can the patient safely return to the preadmission environment? Yes * Has this patient been hospitalized within the prior 30 days at any hospital? No Coverage Notice Reviewer: [email or web address] - Julia Patterson Notice Issued Date-Time: 10/04/2019 14:15 Notice Type: IM Discharge Notice Notice Delivered To: Patient Relationship to Patient: Self Rag Cutting Machine Operator Name: Delivery Method: HAND - Hand Delivered Alisha Days: Prior Verbal Notification: Recipient Understood Notice: Yes Recipient Signature: Yes Med Rec Note Co-signed by Attending: Coverage Notice Comment: Last DP export: 10/06/19 11:27 a Patient Name: PRATEEK VELEZ Page 64602 at 1609 All edits/amendments must be made on the electronic document DICTATION DATE: 10/08/19 1609 GUARD IMMIGRATION: LAURA 10/08/19 1609 RPT#: [id number] DC DATE:10/06/19 STATUS: DIS IN [facility] [address] [place] [address] END OF REPORT
== END 2019-10-06 17:15 | disposition home or self-care (01) | DRG 193 ==
LOC: D.ER 17:26 → D.M2 19:50
PROVIDERS: Family Medicine; Internal Medicine Pulmonary Disease; ADMIT Internal Medicine Nephrology; ATTEND Internal Medicine Nephrology
PROC: 0BDG8ZX Extraction of Left Upper Lung Lobe, Via Natural or Artificial Opening Endoscopic, Diagnostic (ICD-10-PCS; 2019-10-03)
PROC: 0B988ZZ Drainage of Left Upper Lobe Bronchus, Via Natural or Artificial Opening Endoscopic (ICD-10-PCS; principal; 2019-10-03 11:00)
DX: J18.9 Pneumonia, unspecified organism (principal); J96.21 Acute and chronic respiratory failure with hypoxia; E43 Unspecified severe protein-calorie malnutrition; J90 Pleural effusion, not elsewhere classified; C34.90 Malignant neoplasm of unspecified part of unspecified bronchus or lung; Z68.1 Body mass index [BMI] 19.9 or less, adult; I10 Essential (primary) hypertension; E78.5 Hyperlipidemia, unspecified; G89.29 Other chronic pain; M54.9 Dorsalgia, unspecified; F41.8 Other specified anxiety disorders; J43.9 Emphysema, unspecified; D50.9 Iron deficiency anemia, unspecified

== ENCOUNTER 2019-10-14 21:54 | Inpatient (IN) | payer MEDICARE ==
[~2019-10-14] VITALS: Ht 160 cm; Wt 50.1 kg
--- NOTE | 2019-10-14 22:21 | NUR ---
DAVID HENRY FROM [facility] CALLED PRIOR TO PATIENT BEING TRANSPORTED TO ED AND STATED HE HAS BEEN CONTACTED BY PD ABOUT MRS. VELEZ. REQUESTED TO BE CALLED BACK WITH DISPOSITION OF PATIENT.
--- NOTE | 2019-10-14 22:45 | NUR ---
RT AT PT BEDSIDE FOR UPDRAFT.
[2019-10-14 22:46] LABS: BASOPHILS 0 % (0-2); EOSINOPHILS 2.1 % (0-7); HEMATOCRIT 29.3 % (36.0-48.0); HEMOGLOBIN 8.9 g/dL (12-16); IMMATURE GRANULOCYTES 0.3 % (0-5); LYMPHOCYTES 6.9 % (15-50); MCH 29.5 pg (26.0-34.0); MCHC 30.4 g/dL (31.0-37.0); MEAN PLATELET VOLUME 8.2 fL (7.4-10.4); MONOCYTES 10.3 % (2-11); NEUTROPHILS 80.4 % (40-80); PLATELET COUNT 441 10x3/uL (130-400); RBC 3.02 10x6/uL (4.00-5.40); RDW 16.6 % (11.5-14.5); WBC 9.5 10x3/uL (4.8-10.8)
[2019-10-14 22:49] LABS: INR 1.16 (0.85-1.17); PROTIME 14.8 SECONDS (11.6-15.0)
[2019-10-14 22:50] LABS: APTT 56.9 SECONDS (22.8-39.4)
[2019-10-14 22:52] LABS: CALC OSMOLALITY 275 mosm/kg (275-300); CALCIUM 8.5 mg/dL (8.5-10.1); CARBON DIOXIDE 27.5 mmol/L (21.0-32.0); CHLORIDE - SERUM 101 mmol/L (98-107); CREATININE - SERUM 0.9 mg/dL (0.6-1.3); GLUCOSE 104 mg/dL (74-106); SODIUM 138 mmol/L (136-145); UREA NITROGEN 13 mg/dL (7-18); eGFR NON AFRICAN AMERICAN 65 mL/min (90-120)
[2019-10-14 23:08] LABS: ALBUMIN 2.2 g/dL (3.4-5.0); ALKALINE PHOSPHATASE 63 U/L (30-120); ALT (SGPT) 19 U/L (10-68); BILIRUBIN - TOTAL 0.36 mg/dL (0.2-1.3); CKMB 0.2 U/L (0.0-3.6); CREATINE KINASE 20 UL (21-215); PRO BNP 629 pg/mL (0-125); PROTEIN - SERUM 6.8 g/dL (6.4-8.2); TROPONIN-I < 0.017 ng/mL (0.000-0.060)
[2019-10-14 23:13] LABS: % SATURATION 13 % (15-55); IRON 22 ug/dl (35-150); TOTAL IRON BIND CAPACITY 163 ug/dl (260-445); UNSAT IRON BIND CAPACITY 141 ug/dl (150-375)
--- NOTE | 2019-10-14 23:18 | NUR ---
[facility] CALLED AND INFORMED PATIENT IS BEING ADMITTED TO HOSPITAL
[2019-10-14 23:37] LABS: BILIRUBIN NEGATIVE (NEGATIVE); GLUCOSE NEGATIVE (NEGATIVE); KETONE NEGATIVE (NEGATIVE); NITRITE NEGATIVE (NEGATIVE); SPECIFIC GRAVITY 1.015 (1.005-1.020); UROBILINOGEN NORMAL (NORMAL)
--- NOTE | 2019-10-14 23:45 | NUR ---
LAB AT PT BEDSIDE. BLOOD CULTURES X2 OBTAINED AT THIS TIME.
[2019-10-14] MEDS ORDERED: CYCLOBENZAPRINE5 MG PO (23:59)
[2019-10-14] MEDS ORDERED: PROMETHAZINE W473 ML PO (23:59)
[2019-10-15] VITALS (7 sets, daily range): BP systolic 90–151; BP diastolic 40–59; BMI 18.6
--- NOTE | 2019-10-15 00:13 | NUR ---
PT ARRIVED ON UNIT VIA STRETCHER ESCORTED BY ER NURSE. TRANSFERRED TO BED. PT VERY PALE WITH DECREASED LOC...OPENING EYES BRIEFLY WHEN BEING TRANSFERRED. POSITIONED FOR COMFORT WITH BEDPADS DENEATH HER. ACTIVATED BED ALARM FOR SAFETY. SIDE RAILS UP X2 FOR SAFETY.
--- NOTE | 2019-10-15 00:38 | NUR ---
ADMISSION ASSESSMENT AND HISTORY COMPLETE, DESPITE PT BEING UNABLE TO WAKE UP ENOUGH TO ANSWER QUESTIONS.
--- NOTE | 2019-10-15 05:27 | NUR ---
PT BATHED AND ALL LINENS AND GOWN CHANGED. PT HAS REDNESS ON COCCYX AND BILATERAL HIPS....CUSHIONED WITH PILLOWS. BRIDGED HEELS AND PLACED SCD'S ON BLE PER ORDER.
--- NOTE | 2019-10-15 10:57 | NUR ---
PT RESTING IN BED WITH EYES CLOSED. RESP EVEN AND UNLABORED. AROUSES EASILY WITH NAME CALLED. DENIES PAIN OR FURTHER NEEDS AT THIS TIME. CL WITHIN REACH. ENCOURAGED TO CALL WITH NEEDS.
--- NOTE | 2019-10-15 12:50 | NUR ---
ASSISTED PT FROM BED TO BATHROOM X 1 ASSIST. PT KARINA WELL
[2019-10-15 15:21] LABS: CKMB 0.1 U/L (0.0-3.6); CREATINE KINASE 15 UL (21-215); TROPONIN-I < 0.017 ng/mL (0.000-0.060)
[2019-10-15 15:22] LABS: MAGNESIUM - SERUM 2.2 mg/dL (1.8-2.4)
--- NOTE | 2019-10-15 15:54 | NUR ---
PT TAKEN VIA W/C FOR CT SCAN. NO ACUTE DISTRESS NOTED.
--- NOTE | 2019-10-15 19:00 | NUR ---
BEDSIDE REPORT RECEIVED AND CARE OF PT ASSUMED. PT LYING ON RIGHT SIDE WITH EYES CLOSED. O2 IN USE VIA NC AT 2L. LEFT INFUSAPORT ACCESSED, AND PATENT WITH NS INFUSING AT KVO. WILL MONITOR FOR NEEDS.
--- NOTE | 2019-10-15 19:50 | NUR ---
CALLED RT PER PT REQUEST FOR PRN UPDRAFT TREATMENT.
--- NOTE | 2019-10-15 20:03 | NUR ---
PAGED MARCELA HAIRSTON TO GO OVER PT'S HOME MEDICATIONS. NEW ORDERS RECEIVED.
[2019-10-15 20:45] LABS: CKMB 0.1 U/L (0.0-3.6); CREATINE KINASE 18 UL (21-215); TROPONIN-I < 0.017 ng/mL (0.000-0.060)
--- NOTE | 2019-10-15 21:20 | NUR ---
HS MEDICATIONS GIVEN TO INCLUDE XANAX AND FLEXERIL PER PT REQUEST FOR PAIN AND ANXIETY. STARTED HTN MEDS TOMORROW PT WITH LOW BP TONIGHT.
[2019-10-16] VITALS: BP 88/38
[2019-10-16 02:21] LABS: BASOPHILS 0 % (0-2); EOSINOPHILS 3.6 % (0-7); HEMATOCRIT 26.3 % (36.0-48.0); HEMOGLOBIN 7.8 g/dL (12-16); IMMATURE GRANULOCYTES 0.3 % (0-5); LYMPHOCYTES 11.2 % (15-50); MCH 28.9 pg (26.0-34.0); MCHC 29.7 g/dL (31.0-37.0); MCV 97.4 fL (80.0-100.0); MEAN PLATELET VOLUME 7.9 fL (7.4-10.4); MONOCYTES 12.9 % (2-11); PLATELET COUNT 368 10x3/uL (130-400); RDW 16.2 % (11.5-14.5)
[2019-10-16 02:24] LABS: WBC 6.9 10x3/uL (4.8-10.8)
[2019-10-16 02:49] LABS: ALBUMIN 1.9 g/dL (3.4-5.0); ALKALINE PHOSPHATASE 55 U/L (30-120); BILIRUBIN - TOTAL 0.18 mg/dL (0.2-1.3); CALCIUM 7.9 mg/dL (8.5-10.1); CARBON DIOXIDE 27.4 mmol/L (21.0-32.0); CHLORIDE - SERUM 105 mmol/L (98-107); CKMB 0.5 U/L (0.0-3.6); CREATINE KINASE 16 UL (21-215); CREATININE - SERUM 0.8 mg/dL (0.6-1.3); GLUCOSE 93 mg/dL (74-106); MAGNESIUM - SERUM 1.8 mg/dL (1.8-2.4); POTASSIUM - SERUM 4.1 mmol/L (3.5-5.1); SODIUM 138 mmol/L (136-145); TROPONIN-I < 0.017 ng/mL (0.000-0.060); eGFR NON AFRICAN AMERICAN 74 mL/min (90-120)
[2019-10-16 02:55] LABS: ALT (SGPT) 10 U/L (10-68); CALC OSMOLALITY 274 mosm/kg (275-300); UREA NITROGEN 9 mg/dL (7-18)
[2019-10-16 04:00] VITALS: BP 106/43
[2019-10-16 08:02] VITALS: BP 100/40
--- NOTE | 2019-10-16 10:10 | NUR ---
SHE WALKED TO THE BATHROOM WITH STANDBY ASSIST, SHE IS UNSTEADY WHEN SHE FIRST GOT OUT OF BED. SHE IS EATING HER BREAKFAST SETTING UP ON THE SIDE OF THE BED.
[2019-10-16 11:45] VITALS: BP 96/42
[2019-10-16 12:30] VITALS: BMI 18.6
--- NOTE | 2019-10-16 15:43 | NUR ---
OT NOTE: PT COMPLETED ADL MOB WITH SBA. PT COMPLETED BED MOB WITH SPV. PT COMPLETED UE AROM AXS. PT DOING WELL. [phone] THANK YOU,JEREMI WEAVER
[2019-10-16 16:49] VITALS: BP 95/39
--- NOTE | 2019-10-16 19:00 | NUR ---
BEDSIDE REPORT RECEIVED AND CARE OF PT ASSUMED. PT LYING ON RIGHT SIDE WITH EYES CLOSED. O2 IN USE VIA NC AT 2L. TELEMETRY IN PLACE PER ORDER. WILL MONITOR FOR NEEDS.
--- NOTE | 2019-10-16 20:32 | NUR ---
HS MEDICATIONS GIVEN TO INCLUDE XANAX AND FLEXERIL PER REQUEST, PER PRN ORDERS. WILL CONTINUE TO MONITOR CLOSELY.
--- NOTE | 2019-10-16 20:45 | NUR ---
ASSISTED PT UP TO USE RESTROOM. REPLACED GOWN AND BED PAD. POSITIONED BACK IN BED FOR COMFORT.
[2019-10-16 21:50] VITALS: BP 89/40
[2019-10-17 00:03] VITALS: BP 97/40
[2019-10-17 05:22] LABS: BASOPHILS 0.1 % (0-2); EOSINOPHILS 2.9 % (0-7); HEMATOCRIT 25.4 % (36.0-48.0); IMMATURE GRANULOCYTES 0.3 % (0-5); LYMPHOCYTES 6.2 % (15-50); MCH 29.2 pg (26.0-34.0); MCHC 29.5 g/dL (31.0-37.0); MCV 98.8 fL (80.0-100.0); MEAN PLATELET VOLUME 8.2 fL (7.4-10.4); MONOCYTES 10.9 % (2-11); NEUTROPHILS 79.6 % (40-80); PLATELET COUNT 436 10x3/uL (130-400); RBC 2.57 10x6/uL (4.00-5.40); RDW 16.4 % (11.5-14.5); WBC 7.6 10x3/uL (4.8-10.8)
[2019-10-17 05:24] VITALS: BP 90/38
[2019-10-17 05:28] LABS: HEMOGLOBIN 7.5 g/dL (12-16)
[2019-10-17 05:40] LABS: ALBUMIN 1.8 g/dL (3.4-5.0); ANION GAP 7.6 mmol/L (8-16); BILIRUBIN - TOTAL 0.17 mg/dL (0.2-1.3); CALCIUM 7.9 mg/dL (8.5-10.1); CARBON DIOXIDE 26.1 mmol/L (21.0-32.0); CREATININE - SERUM 0.9 mg/dL (0.6-1.3); MAGNESIUM - SERUM 2.1 mg/dL (1.8-2.4); POTASSIUM - SERUM 3.7 mmol/L (3.5-5.1); PROTEIN - SERUM 5.9 g/dL (6.4-8.2)
--- NOTE | 2019-10-17 08:42 | NUR ---
SHE IS SLEEPING, BUT AROUSES TO MY VOICE. DENIES ANY PAIN OR NEEDS.
[2019-10-17 09:07] VITALS: BP 96/40
[2019-10-17 12:45] VITALS: BP 108/76
--- NOTE | 2019-10-17 15:47 | NUR ---
OT NOTE: PT RESTING IN AM.. ASSISTED PT TO BATHROOM WITH SBA; TOILET HYGIENE WITH SPV; IN ROOM AMBULATION WITH CGA AND USE OF FURNTIURE. ABLE TO STAND AT SINK TO PERFORM SINK HYGIENE WITH SBA. PROVIDED PT WITH RECLINER. SHE TRANSFERS WITH SBA. TOLERATED SITTING UP IN CHAIR FOR GREATER THAN 2 HRS. REBECA MCNEAL, OTR/L [phone]
[2019-10-17 16:24] VITALS: Ht 160 cm; Wt 50.1 kg
[2019-10-17 17:47] VITALS: BP 115/55
--- NOTE | 2019-10-17 20:15 | NUR ---
PT AWAKE AND ALERT NO SIGNS OF DISTRESS NOTED. RESPIRATIONS EVEN AND UNLABORED. RESPIRATORY IS AT BEDSIDE. PT HAS NO COMPLAINTS AT THIS TIME. CALL LIGHT WITH IN REACH. PT ENCOUARGED TO CALL FOR HELP WHEN NEEDED. WILL CONTINUE TO MONITOR
--- NOTE | 2019-10-17 20:43 | NUR ---
pt c/o muscle spasms prn medication given. call light with in reach
[2019-10-17 21:42] VITALS: BP 122/50
[2019-10-18 00:23] VITALS: BP 143/67
--- NOTE | 2019-10-18 01:50 | NUR ---
ASSIST PT AND MEAT WASHER WITH BATH AND LIENEN CHANGE. PT TOLERATED WELL. PT IS NPO FOR PROCEDURE IN THE MORNING. BED ALARM ON AND ACTIVE. CALL LIGHT WITH IN REACH. PT ENCOURAGED TO CALL FOR HELP WHEN NEEDED AND WHEN GETTING IN AND OUT OF BED. CALL LIGHT WITH IN REACH. WILL CONTINUE TO MONITOR
--- NOTE | 2019-10-18 03:15 | NUR ---
I have reviewed this patient and I concur with the Shift Assessment completed by the Licensed Practical Nurse today this shift.
[2019-10-18 05:55] LABS: BASOPHILS 0 % (0-2); EOSINOPHILS 4.7 % (0-7); HEMATOCRIT 27.3 % (36.0-48.0); IMMATURE GRANULOCYTES 0.2 % (0-5); LYMPHOCYTES 6.6 % (15-50); MCH 28.9 pg (26.0-34.0); MCHC 29.3 g/dL (31.0-37.0); MCV 98.6 fL (80.0-100.0); MEAN PLATELET VOLUME 8.2 fL (7.4-10.4); MONOCYTES 11.8 % (2-11); NEUTROPHILS 76.7 % (40-80); PLATELET COUNT 438 10x3/uL (130-400); RBC 2.77 10x6/uL (4.00-5.40); RDW 16.1 % (11.5-14.5); WBC 8.4 10x3/uL (4.8-10.8)
[2019-10-18 06:04] VITALS: BP 137/60
[2019-10-18 06:29] LABS: ALBUMIN 1.9 g/dL (3.4-5.0); ANION GAP 9.4 mmol/L (8-16); BILIRUBIN - TOTAL 0.16 mg/dL (0.2-1.3); CALCIUM 8.1 mg/dL (8.5-10.1); CARBON DIOXIDE 26.4 mmol/L (21.0-32.0); CREATININE - SERUM 0.8 mg/dL (0.6-1.3); MAGNESIUM - SERUM 1.8 mg/dL (1.8-2.4); POTASSIUM - SERUM 3.8 mmol/L (3.5-5.1); PROTEIN - SERUM 6.2 g/dL (6.4-8.2)
--- NOTE | 2019-10-18 07:30 | NUR ---
RECEIVED PT FROM CHARGE AIDE. UPON ENTERING PT HAS EYES CLOSED. REPORTED TO BE ALERT AND ORIENTED. PT HAS A LEFT INFUSAPORT, THEY DO NOT DRAW BLOOD FROM IT. PT IS NPO FOR A BRONCH AND STENT TODAY. 2L O2 VIA NASAL CANNULA. PT HAS TELMETRY. BED IN LOWEST POSITION, BED RAILS X2, CALL LIGHT WITHIN REACH. WILL CONTINUE TO MONITOR.
[2019-10-18 09:47] VITALS: BP 134/64
--- NOTE | 2019-10-18 10:57 | NUR ---
PT RESTING IN BED. PT REPORTS SHE GOT UP TO THE BATHROOM AND BACK TO BED. DENIE ANY NEEDS. WILL CONTINUE TO MONITOR.
--- NOTE | 2019-10-18 11:11 | NUR ---
PT CURRENTLY RESTING IN BED WITH EYES CLOSED, BREATING EVEN AND UNLABORED. NO S/S OF DISTRESS NOTED AT THIS TIME. WILL CONTINUE TO MONITOR.
--- NOTE | 2019-10-18 12:46 | NUR ---
ADMINISTERED PRE-OP MEDICATIONS PER REQUEST. PT IS READY FOR PROCEDURE. RESTING COMFORTABLY IN BED. DENIES ANY NEEDS AT THIS TIME. SOPHIA CONTINUE TO MONTIOR.
[2019-10-18 13:17] VITALS: BP 125/64
--- NOTE | 2019-10-18 14:07 | NUR ---
Coccyx and hips were red (blanchable) on admission. Mepilex was applied to bottom for protection. Pt is being turned/repositioned q 2 hours while in bed. Wound care continues to monitor.
--- NOTE | 2019-10-18 14:17 | NUR ---
OT NOTE: PT AWAITING PROCEDURE IN AM.. OUT FOR PROCEDURE IN PM REBECA MCNEAL, OTR/L
--- NOTE | 2019-10-18 14:38 | MORECARE ---
CASE MANAGEMENT DISCHARGE SUMMARY PATIENT: PRATEEK VELEZ UNIT: [id number] ADM DATE: 10/14/19 AGE: 74 : 45 SEX: F ROOM/BED: D.2208 AUTHOR: YISEL CULLEN PHYSICIAN: REFERRING PHYSICIAN: RADHA VANN MD DATE OF SERVICE: 10/18/19 Discharge Plan Patient Name: PRATEEK VELEZ [facility] [facility] 1945 Planned Disposition: Anticipated Discharge Date: Discharge Date: Expected LOS: Initial Reviewer: [email or web address] Initial Review Date: 10/15/2019 Generated: 10/18/19 3:38 pm Comments DCP- Discharge Planning Updated by [email or web address]: Destinee Long on 10/18/19 1:[address] Patient Name: PRATEEK VELEZ Admission Status: ER Accout number: [id number] Admission Date: 10-14-2019 : 1945 Admission Diagnosis:PNEUMONIA, UNSPECIFIED ORGANISM Attending: RADHA VANN Current LOS: 4 Anticipated DC Date: Planned Disposition: Primary Insurance: HUMANA CHOICE PPO MCR ADVANT Discharge Planning Comments: PATIENT IS IN OR AT THIS TIME, I WILL COME BACK TO ASSESS. Curing Bin Operator: Destinee Long Patient Name: PRATEEK VELEZ Page [id number] at 1438 All edits/amendments must be made on the electronic document DICTATION DATE: 10/18/191437 STRAND FORMING MACHINE OPERATOR: LAURA 10/18/198 RPT#: [id number] DC DATE: STATUS: ADM IN [facility] [address] [place] [address] END OF REPORT
--- NOTE | 2019-10-18 16:39 | NUR ---
RECEIVED REPORT FROM [facility].
--- NOTE | 2019-10-18 16:54 | NUR ---
PT BACK FROM SURGERY. RE-CONNECTED PT TO TELEMETRY.
--- NOTE | 2019-10-18 17:04 | NUR ---
BLOOD PRESSURE 108/50, PULSE 74, 95% O2 ON 4L NC. RESPIRATIONS 16. RESTING COMFORTABLY, STILL GROGGY FROM ANESTHESIA. WILL CONTINUE TO MONITOR VITALS PER PROTOCOL.
--- NOTE | 2019-10-18 17:42 | NUR ---
HUNG IV MEDICATION. PT UPRIGHT IN BED EATING DINNER. ALERT AND ORIENTED. LESS GROGGY. DENIES ANY NEEDS. WILL CONTINUE TO MONITOR.
--- NOTE | 2019-10-18 18:31 | NUR ---
I have reviewed this patient and I concur with the Shift Assessment completed by the Licensed Practical Nurse today this shift.
[2019-10-18 20:00] VITALS: BP 103/52
[2019-10-18 20:13] LABS: EOS BF 7 %; MACROPHAGES BF 14 %; MESOTHELIALS BF 1 %; NEUT - BF 64 %
[2019-10-19] VITALS: BP 112/69
[2019-10-19 04:00] VITALS: BP 106/67
--- NOTE | 2019-10-19 06:34 | NUR ---
I have reviewed this patient and I concur with the Shift Assessment completed by the Licensed Practical Nurse today this shift.
[2019-10-19 08:13] LABS: BASOPHILS 0 % (0-2); EOSINOPHILS 0.2 % (0-7); HEMATOCRIT 30.2 % (36.0-48.0); HEMOGLOBIN 8.9 g/dL (12-16); IMMATURE GRANULOCYTES 0.4 % (0-5); LYMPHOCYTES 1.7 % (15-50); MCH 29.6 pg (26.0-34.0); MCHC 29.5 g/dL (31.0-37.0); MCV 100.3 fL (80.0-100.0); MEAN PLATELET VOLUME 8.4 fL (7.4-10.4); MONOCYTES 7.6 % (2-11); NEUTROPHILS 90.1 % (40-80); PLATELET COUNT 462 10x3/uL (130-400); RBC 3.01 10x6/uL (4.00-5.40); RDW 16.1 % (11.5-14.5)
[2019-10-19 08:14] LABS: WBC 13.5 10x3/uL (4.8-10.8)
[2019-10-19 08:29] LABS: ALBUMIN 2.1 g/dL (3.4-5.0); BILIRUBIN - TOTAL 0.16 mg/dL (0.2-1.3); CALCIUM 9.1 mg/dL (8.5-10.1); CARBON DIOXIDE 26.5 mmol/L (21.0-32.0); CREATININE - SERUM 0.8 mg/dL (0.6-1.3); MAGNESIUM - SERUM 2.2 mg/dL (1.8-2.4); PROTEIN - SERUM 6.9 g/dL (6.4-8.2)
[2019-10-19 08:30] LABS: ANION GAP 13.1 mmol/L (8-16); POTASSIUM - SERUM 4.6 mmol/L (3.5-5.1)
[2019-10-19 09:28] VITALS: BP 126/78
--- NOTE | 2019-10-19 09:33 | NUR ---
SHE DOES NOT REMEMBER HAVING THE SURGERY YESTERDAY. DR. MADDOX BROUGHT PICTURES TO SHOW HER OF THE SURGERY.
--- NOTE | 2019-10-19 10:16 | MORECARE ---
CASE MANAGEMENT DISCHARGE SUMMARY PATIENT: PRATEEK VELEZ UNIT: [id number] ADM DATE: 10/14/19 AGE: 74 : 45 SEX: F ROOM/BED: D.9316 AUTHOR: YISEL CULLEN PHYSICIAN: REFERRING PHYSICIAN: RADHA VANN MD DATE OF SERVICE: 10/19/19 Discharge Plan Patient Name: PRATEEK VELEZ Facility: [facility]:[place] : 1945 Planned Disposition: Prison Facility Anticipated Discharge Date: Discharge Date: Expected LOS: Initial Reviewer: [email or web address] Initial Review Date: 10/19/2019 Generated: 10/19/19 11:15 am Comments DCP- Discharge Planning Updated by [email or web address]: Destinee Long on 10/18/19 1:[address] Patient Name: PRATEEK VELEZ Admission Status: ER Accout number: [id number] Admission Date: 10-14-2019 : 1945 Admission Diagnosis:PNEUMONIA, UNSPECIFIED ORGANISM Attending: RADHA VANN Current LOS: 4 Anticipated DC Date: Planned Disposition: Primary Insurance: HUMANA CHOICE PPO MCR ADVANT Discharge Planning Comments: PATIENT IS IN OR AT THIS TIME, I WILL COME BACK TO ASSESS. Airline Lounge Receptionist: Destinee Long Last DP export: 10/18/19 1:38 pm Patient Name: PRATEEK VELEZ Page 94720 at 1016 All edits/amendments must be made on the electronic document DICTATION DATE: 10/19/19 1015 JAVA GRAILS DEVELOPER: DM 10/19/19 1015 RPT#: [id number] DC DATE: STATUS: ADM IN [facility] [address] [place] [address] END OF REPORT
--- NOTE | 2019-10-19 10:23 | MORECARE ---
CASE MANAGEMENT DISCHARGE SUMMARY PATIENT: PRATEEK VELEZ UNIT: [id number] ADM DATE: 10/14/19 AGE: 74 : 45 SEX: F ROOM/BED: D.2206 AUTHOR: YISEL CULLEN PHYSICIAN: REFERRING PHYSICIAN: RADHA VANN MD DATE OF SERVICE: 10/19/19 Discharge Plan Patient Name: PRATEEK VELEZ Facility: [facility]:[place] : 1945 Planned Disposition: [facility] Facility Anticipated Discharge Date: Discharge Date: Expected LOS: Initial Reviewer: [id number] Initial Review Date: 10/19/2019 Generated: 10/19/19 11:23 am Comments DCP- Discharge Planning Updated by [email or web address]: Destinee Long on 10/18/19 1:[address] Patient Name: PRATEEK VELEZ Admission Status: ER Accout number: [id number] Admission Date: 10-14-2019 : 1945 Admission Diagnosis:PNEUMONIA, UNSPECIFIED ORGANISM Attending: RADHA VANN Current LOS: 4 Anticipated DC Date: Planned Disposition: Primary Insurance: HUMANA CHOICE PPO MCR ADVANT Discharge Planning Comments: PATIENT IS IN OR AT THIS TIME, I WILL COME BACK TO ASSESS. Radial Drill Press Operator: Destinee Long DCPIA - Discharge Planning Initial Assessment Updated by [email or web address]: Destinee Long on 10/19/19 10:17 am * Is the patient Alert and Oriented? Yes * PCP ONIEL * Pharmacy [facility] * Preadmission Environment Home Alone * ADLs Independent * Other Equipment 02, NEBS, O2 PORTABLE- [employer] * Additional services required to return to the preadmission environment? Yes * Can the patient safely return to the preadmission environment? No * Has this patient been hospitalized within the prior 30 days at any hospital? Yes Last DP export: 10/19/19 9:16 am Patient Name: PRATEEK VELEZ Page 00970 at 1023 All edits/amendments must be made on the electronic document DICTATION DATE: 10/19/19 1023 QUALITY CONTROL SCIENTIST: LAURA 10/19/19 1023 RPT#: [id number] DC DATE: STATUS: ADM IN [facility] [address] [place] [address] END OF REPORT
--- NOTE | 2019-10-19 10:39 | MORECARE ---
CASE MANAGEMENT DISCHARGE SUMMARY PATIENT: PRATEEK VELEZ UNIT: [id number] ADM DATE: 10/14/19 AGE: 74 : 45 SEX: F ROOM/BED: D.9858 AUTHOR: SUBHASH,DOC PHYSICIAN: REFERRING PHYSICIAN: RADHA VANN MD DATE OF SERVICE: 10/19/19 Discharge Plan Patient Name: PRATEEK VELEZ Facility: [facility]:[place] : 1945 Planned Disposition: Fpc Facility Anticipated Discharge Date: Discharge Date: Expected LOS: Initial Reviewer: [email or web address] Initial Review Date: 10/19/2019 Generated: 10/19/19 11:38 am Comments DCP- Discharge Planning Updated by [id number]: Destinee Long on 10/19/19 9:[address] Patient Name: PRATEEK VELEZ Admission Status: ER Accout number: [id number] Admission Date: 10-14-2019 : 1945 Admission Diagnosis:PNEUMONIA, UNSPECIFIED ORGANISM Attending: RADHA VANN Current LOS: 5 Anticipated DC Date: Planned Disposition: Fpc Facility Primary Insurance: HUMANA CHOICE PPO MCR ADVANT Discharge Planning Comments: CM met with patient at bedside after explaining CM role and obtaining verbal consent. CM discussed availability / needs of home health, REHAB and medical equipment.WOULD LIKE [facility] SNF. OZ SIGNED, IMM SIGNED. HAS HOME O2 PROVIDED BY [facility]. CM WILL FOLLOW AND ASSIST NEEDED. Building Carpenter: Destinee Long DCP- Discharge Planning Updated by [id number]: Destinee Long on 10/18/19 1:[address] Patient Name: PRATEEK VELEZ Admission Status: ER Accout number: [id number] Admission Date: 10-14-2019 : 1945 Admission Diagnosis:PNEUMONIA, UNSPECIFIED ORGANISM Attending: RADHA VANN Current LOS: 4 Anticipated DC Date: Planned Disposition: Primary Insurance: HUMANA CHOICE PPO MCR ADVANT Discharge Planning Comments: PATIENT IS IN OR AT THIS TIME, I WILL COME BACK TO ASSESS. Building Carpenter: Destinee Long DCPIA - Discharge Planning Initial Assessment Updated by [email or web address]: Destinee Long on 10/19/19 10:17 am * Is the patient Alert and Oriented? Yes * PCP ONIEL * [facility] * Preadmission Environment Home Alone * ADLs Independent * Other Equipment 02, NEBS, O2 PORTABLE- [employer] * Additional services required to return to the preadmission environment? Yes * Can the patient safely return to the preadmission environment? No * Has this patient been hospitalized within the prior 30 days at any hospital? Yes Coverage Notice Reviewer: [email or web address] Yajaira Long Notice Issued Date-Time: 10/19/2019 10:32 Notice Type: IM Discharge Notice Notice Delivered To: Patient Relationship to Patient: Medical Office Administrator Name: Delivery Method: HAND - Hand Delivered Alisha Days: Prior Verbal Notification: Recipient Understood Notice: Yes Recipient Signature: Yes Med Rec Note Co-signed by Attending: Coverage Notice Comment: Reviewer: [email or web address] Long Notice Issued Date-Time: 10/19/2019 10:32 Notice Type: Patient Choice Letter Notice Delivered To: Patient Relationship to Patient: Medical Office Administrator Name: Delivery Method: HAND - Hand Delivered Alisha Days: Prior Verbal Notification: Recipient Understood Notice: Yes Recipient Signature: Yes Med Rec Note Co-signed by Attending: Coverage Notice Comment: NANCY Meza DP export: 10/19/19 9:23 am Patient Name: PRATEEK VELEZ Page 66884 at 1039 All edits/amendments must be made on the electronic document DICTATION DATE: 10/19/19 1038 FINANCIAL SALES REPRESENTATIVE: LAURA 10/19/19 1038 RPT#: [id number] DC DATE: STATUS: ADM IN [facility] [address] [place] [address] END OF REPORT
--- NOTE | 2019-10-19 10:45 | MORECARE ---
CASE MANAGEMENT DISCHARGE SUMMARY PATIENT: PRATEEK VELEZ UNIT: [id number] ADM DATE: 10/14/19 AGE: 74 : 45 SEX: F ROOM/BED: D.8591 AUTHOR: SUBHASH,DOC PHYSICIAN: REFERRING PHYSICIAN: RADHA VANN MD DATE OF SERVICE: 10/19/19 Discharge Plan Patient Name: PRATEEK VELEZ Facility: [facility]:[place] : 1945 Planned Disposition: Penitentiary Facility Anticipated Discharge Date: Discharge Date: Expected LOS: Initial Reviewer: [email or web address] Initial Review Date: 10/19/2019 Generated: 10/19/19 11:45 am Comments DCP- Discharge Planning Updated by [email or web address]: Destinee Long on 10/19/19 9:[address] Patient Name: PRATEEK VELEZ Admission Status: ER Accout number: [id number] Admission Date: 10-14-2019 : 1945 Admission Diagnosis:PNEUMONIA, UNSPECIFIED ORGANISM Attending: RADHA VANN Current LOS: 5 Anticipated DC Date: Planned Disposition: Penitentiary Facility Primary Insurance: HUMANA CHOICE PPO MCR ADVANT Discharge Planning Comments: CM met with patient at bedside after explaining CM role and obtaining verbal consent. CM discussed availability / needs of home health, REHAB and medical equipment.WOULD LIKE [facility] SN[facility]. OZ SIGNED, IMM SIGNED. HAS HOME O2 PROVIDED BY [facility]. CM WILL FOLLOW AND ASSIST NEEDED. Padded Products Finisher: Destinee Long Appended by Destinee Long on 10/19/2019 10:39 CDT: CM CALLED [facility] AT [phone] TO GET INFORMATION ON PATIENT AND TO SEE IF THEY ARE FOLLOWING HER, I LEFT MSG ON THE VOICEMAIL. WAITING CALL BACK FROM [facility]. DCP- Discharge Planning Updated by [id number]: Destinee Long on 10/18/19 1:[address] Patient Name: PRATEEK VELEZ Admission Status: ER Accout number: [id number] Admission Date: 10-14-2019 : 1945 Admission Diagnosis:PNEUMONIA, UNSPECIFIED ORGANISM Attending: RADHA VANN Current LOS: 4 Anticipated DC Date: Planned Disposition: Primary Insurance: HUMANA CHOICE PPO MCR ADVANT Discharge Planning Comments: PATIENT IS IN OR AT THIS TIME, I WILL COME BACK TO ASSESS. Padded Products Finisher: Destinee Long DCPIA - Discharge Planning Initial Assessment Updated by [email or web address]: Destinee Long on 10/19/19 10:17 am * Is the patient Alert and Oriented? Yes * PCP ONIEL * Pharmacy COUNTS [facility]CLUDE [facility] BEDS AT [facility] * Preadmission Environment Home Alone * ADLs Independent * Other Equipment 02, NEBS, O2 PORTABLE- [employer] * Additional services required to return to the preadmission environment? Yes * Can the patient safely return to the preadmission environment? No * Has this patient been hospitalized within the prior 30 days at any hospital? Yes Coverage Notice Reviewer: [email or web address] Yajaira Long Notice Issued Date-Time: 10/19/2019 10:32 Notice Type: IM Discharge Notice Notice Delivered To: Patient Relationship to Patient: Machine Rope Maker Name: Delivery Method: HAND - Hand Delivered Alisha Days: Prior Verbal Notification: Recipient Understood Notice: Yes Recipient Signature: Yes Med Rec Note Co-signed by Attending: Coverage Notice Comment: Reviewer: [id number] Yajaira Long Notice Issued Date-Time: 10/19/2019 10:32 Notice Type: Patient Choice Letter Notice Delivered To: Patient Relationship to Patient: Machine Rope Maker Name: Delivery Method: HAND - Hand Delivered Alisha Days: Prior Verbal Notification: Recipient Understood Notice: Yes Recipient Signature: Yes Med Rec Note Co-signed by Attending: Coverage Notice Comment: NANCY Meza DP export: 10/19/19 9:39 am Patient Name: PRATEEK VELEZ Page [phone] at 1045 All edits/amendments must be made on the electronic document DICTATION DATE: 10/19/19 1045 IMMERSION METAL CLEANER: LAURA 10/19/19 1045 RPT#: [id number] DC DATE: STATUS: ADM IN [facility] [address] [place] [address] END OF REPORT
[2019-10-19 13:20] VITALS: BP 94/40
[2019-10-19 16:45] VITALS: BP 91/42
[2019-10-19 20:00] VITALS: BP 94/44
[2019-10-20] VITALS: BP 91/49
[2019-10-20 04:00] VITALS: BP 105/47
[2019-10-20 05:43] LABS: BASOPHILS 0.1 % (0-2); EOSINOPHILS 5.4 % (0-7); HEMATOCRIT 27.5 % (36.0-48.0); HEMOGLOBIN 7.9 g/dL (12-16); IMMATURE GRANULOCYTES 0.3 % (0-5); LYMPHOCYTES 5.5 % (15-50); MCHC 28.7 g/dL (31.0-37.0); MCV 101.1 fL (80.0-100.0); MEAN PLATELET VOLUME 8.5 fL (7.4-10.4); MONOCYTES 8.4 % (2-11); NEUTROPHILS 80.3 % (40-80); PLATELET COUNT 466 10x3/uL (130-400); RBC 2.72 10x6/uL (4.00-5.40); WBC 12.2 10x3/uL (4.8-10.8)
[2019-10-20 06:29] LABS: ALBUMIN 2.1 g/dL (3.4-5.0); ANION GAP 10.6 mmol/L (8-16); BILIRUBIN - TOTAL 0.17 mg/dL (0.2-1.3); CALCIUM 8.2 mg/dL (8.5-10.1); CARBON DIOXIDE 27.3 mmol/L (21.0-32.0); CREATININE - SERUM 0.9 mg/dL (0.6-1.3); MAGNESIUM - SERUM 1.9 mg/dL (1.8-2.4); PROTEIN - SERUM 6.3 g/dL (6.4-8.2)
[2019-10-20 06:30] LABS: POTASSIUM - SERUM 3.9 mmol/L (3.5-5.1)
--- NOTE | 2019-10-20 08:00 | NUR ---
ALERT AND ORIENTED X4. BREATH SOUNDS DIMINISHED X4 ANTERIOR. O2 1L N/C. TELEMETRY INTACT. LEFT MEDICPORT NOTED W/O ANY S/S OF INFECTION/INFILTRATION. BED ALARM INTACT. DENIES ANY PAIN OR DISCOMFORT WITH COVID 19 SWAB DONE AND SENT TO LAB FOR ROUTINE TESTING FPR POSSIBLE JAIL PLACEMENT.ENCOURAGED TO USE CALL LIGHT FOR ASSSIT.
[2019-10-20 08:45] VITALS: BP 114/90
--- NOTE | 2019-10-20 10:53 | MORECARE ---
CASE MANAGEMENT DISCHARGE SUMMARY PATIENT: PRATEEK VELEZ UNIT: [id number] ADM DATE: 10/14/19 AGE: 74 : 45 SEX: F ROOM/BED: D.5733 AUTHOR: SUBHASH,DOC PHYSICIAN: REFERRING PHYSICIAN: RADHA VANN MD DATE OF SERVICE: 10/20/19 Discharge Plan Patient Name: PRATEEK VELEZ Facility: [facility]:[place] : 1945 Planned Disposition: Correction Facility Anticipated Discharge Date: Discharge Date: Expected LOS: Initial Reviewer: [id number] Initial Review Date: 10/19/2019 Generated: 10/20/19 11:52 am Comments DCP- Discharge Planning Updated by [email or web address]: Destinee Long on 10/19/19 9:[address] Patient Name: PRATEEK VELEZ Admission Status: ER Accout number: [id number] Admission Date: 10-14-2019 : 1945 Admission Diagnosis:PNEUMONIA, UNSPECIFIED ORGANISM Attending: RADHA VANN Current LOS: 5 Anticipated DC Date: Planned Disposition: Correction Facility Primary Insurance: HU[employer]NA CHOICE PPO MCR ADVANT Discharge Planning Comments: CM met with patient at bedside after explaining CM role and obtaining verbal consent. CM discussed availability / needs of home health, REHAB and medical equipment.W[facility] LIKE [facility] SN[facility]. OZ SIGNED, IMM SIGNED. HAS HOME O2 PROVIDED BY [facility]. CM WILL FOLLOW AND ASSIST NEEDED. Warp Knitter Helper: Destinee Long Appended by Destinee Long on 10/19/2019 10:39 CDT: CM CALLED APS AT [phone] TO GET INFORMATION ON PATIENT AND TO SEE IF THEY ARE FOLLOWING HER, I LEFT MSG ON THE VOICEMAIL. WAITING CALL BACK FROM APS. DCP- Discharge Planning Updated by [id number]: Destinee Long on 10/18/19 1:[address] Patient Name: PRATEEK VELEZ Admission Status: ER Accout number: [id number] Admission Date: 10-14-2019 : 1945 Admission Diagnosis:PNEUMONIA, UNSPECIFIED ORGANISM Attending: RADHA VANN Current LOS: 4 Anticipated DC Date: Planned Disposition: Primary Insurance: [employer] CHOICE PPO MCR ADVANT Discharge Planning Comments: PATIENT IS IN OR AT THIS TIME, I WILL COME BACK TO ASSESS. Warp Knitter Helper: Destinee Long DCPIA - Discharge Planning Initial Assessment Updated by [email or web address]: Destinee Long on 10/19/19 10:17 am * Is the patient Alert and Oriented? Yes * PCP ONIEL * Pharmacy [facility] * Preadmission Environment Home Alone * ADLs Independent * Other Equipment 02, NEBS, O2 PORTABLE- [facility] * Additional services required to return to the preadmission environment? Yes * Can the patient safely return to the preadmission environment? No * Has this patient been hospitalized within the prior 30 days at any hospital? Yes External Providers [facility] Next Contact Date: Service Request Date: Service Type: Resolution: Reviewer: Comments: Coverage Notice Reviewer: [id number] Yajaira Long Notice Issued Date-Time: 10/19/2019 10:32 Notice Type: IM Discharge Notice Notice Delivered To: Patient Relationship to Patient: Project Economist Name: Delivery Method: HAND - Hand Delivered Alisha Days: Prior Verbal Notification: Recipient Understood Notice: Yes Recipient Signature: Yes Med Rec Note Co-signed by Attending: Coverage Notice Comment: Reviewer: [id number] Yajaira Long Notice Issued Date-Time: 10/19/2019 10:32 Notice Type: Patient Choice Letter Notice Delivered To: Patient Relationship to Patient: Project Economist Name: Delivery Method: HAND - Hand Delivered Alisha Days: Prior Verbal Notification: Recipient Understood Notice: Yes Recipient Signature: Yes Med Rec Note Co-signed by Attending: Coverage Notice Comment: NANCY GONZALEZ export: 10/19/19 9:45 am Patient Name: PRATEEK VELEZ Page 53986 at 1053 All edits/amendments must be made on the electronic document DICTATION DATE: 10/20/19 105 MATERIAL FLOW ANALYST: LAURA 10/20/19 1052 RPT#: [id number] DC DATE: STATUS: ADM IN [facility] [address] [place] [address] END OF REPORT
--- NOTE | 2019-10-20 11:01 | MORECARE ---
CASE MANAGEMENT DISCHARGE SUMMARY PATIENT: PRATEEK VELEZ UNIT: [id number] ADM DATE: 10/14/19 AGE: 74 : 45 SEX: F ROOM/BED: D.7808 AUTHOR: SUBHASH,DOC PHYSICIAN: REFERRING PHYSICIAN: RADHA VANN MD DATE OF SERVICE: 10/20/19 Discharge Plan Patient Name: PRATEEK VELEZ Facility: [facility]:[place] : 1945 Planned Disposition: Alf Facility Anticipated Discharge Date: Discharge Date: Expected LOS: Initial Reviewer: [email or web address] Initial Review Date: 10/19/2019 Generated: 10/20/19 12:00 pm Comments DCP- Discharge Planning Updated by [email or web address]: Destinee Long on 10/20/19 9:[address] Patient Name: PRATEEK VELEZ Admission Status: ER Accout number: [id number] Admission Date: 10-14-2019 : 1945 Admission Diagnosis:PNEUMONIA, UNSPECIFIED ORGANISM Attending: RADHA VANN Current LOS: 6 Anticipated DC Date: Planned Disposition: Alf Facility Primary Insurance: HU[employer] CHOICE PPO MCR ADVANT Discharge Planning Comments: REFERRAL FAXED TO [facility]. COVID TEST RESULTS PENDING. CM TO FOLLOW AND ASSIST. Electrical Worker: Destinee Long DCP- Discharge Planning Updated by [email or web address]: Destinee Long on 10/19/19 9:[address] Patient Name: PRATEEK VELEZ Admission Status: ER Accout number: [id number] Admission Date: 10-14-2019 : 1945 Admission Diagnosis:PNEUMONIA, UNSPECIFIED ORGANISM Attending: RADHA VANN Current LOS: 5 Anticipated DC Date: Planned Disposition: Alf Facility Primary Insurance: HUMANA CHOICE PPO [facility] ADVANT Discharge Planning Comments: CM met with patient at bedside after explaining CM role and obtaining verbal consent. CM discussed availability / needs of home health, REHAB and medical equipment.WOULD LIKE [facility] SNF. OZ SIGNED, IMM SIGNED. HAS HOME O2 PROVIDED BY [facility]. CM WILL FOLLOW AND ASSIST NEEDED. Electrical Worker: Destinee Long Appended by Destinee Long on 10/19/2019 10:39 CDT: CM CALLED APS AT [phone] TO GET INFORMATION ON PATIENT AND TO SEE IF THEY ARE FOLLOWING HER, I LEFT MSG ON THE VOICEMAIL. WAITING CALL BACK FROM APS. DCP- Discharge Planning Updated by [email or web address]: Destinee Long on 10/18/19 1:[address] Patient Name: PRATEEK VELEZ Admission Status: ER Accout number: [id number] Admission Date: 10-14-2019 : 1945 Admission Diagnosis:PNEUMONIA, UNSPECIFIED ORGANISM Attending: RADHA VANN Current LOS: 4 Anticipated DC Date: Planned Disposition: Primary Insurance: [employer] CHOICE PPO MCR ADVANT Discharge Planning Comments: PATIENT IS IN OR AT THIS TIME, I WILL COME BACK TO ASSESS. Electrical Worker: Destinee Long DCPIA - Discharge Planning Initial Assessment Updated by [id number]: Destinee Long on 10/19/19 10:17 am * Is the patient Alert and Oriented? Yes * PCP ONIEL * [facility] * Preadmission Environment Home Alone * ADLs Independent * Other Equipment 02, NEBS, O2 PORTABLE- [facility] * Additional services required to return to the preadmission environment? Yes * Can the patient safely return to the preadmission environment? No * Has this patient been hospitalized within the prior 30 days at any hospital? Yes Coverage Notice Reviewer: [id number] Yajaira Long Notice Issued Date-Time: 10/19/2019 10:32 Notice Type: IM Discharge Notice Notice Delivered To: Patient Relationship to Patient: Homicide Squad Commanding Officer Name: Delivery Method: HAND - Hand Delivered Alisha Days: Prior Verbal Notification: Recipient Understood Notice: Yes Recipient Signature: Yes Med Rec Note Co-signed by Attending: Coverage Notice Comment: Reviewer: [id number] Yajaira Long Notice Issued Date-Time: 10/19/2019 10:32 Notice Type: Patient Choice Letter Notice Delivered To: Patient Relationship to Patient: Homicide Squad Commanding Officer Name: Delivery Method: HAND - Hand Delivered Alisha Days: Prior Verbal Notification: Recipient Understood Notice: Yes Recipient Signature: Yes Med Rec Note Co-signed by Attending: Coverage Notice Comment: NANCY Meza DP export: 10/20/19 9:53 am Patient Name: PRATEEK VELEZ Page 52070 at 1101 All edits/amendments must be made on the electronic document DICTATION DATE: 10/20/191099 UNDER PRESSER: LAURA 10/20/191099 RPT#: [id number] DC DATE: STATUS: ADM IN [facility] [address] [place] [address] END OF REPORT
[2019-10-20 11:09] LABS: FUNGUS STAIN Final report (())
[2019-10-20 12:30] VITALS: BP 120/45
--- NOTE | 2019-10-20 16:39 | NUR ---
OT NOTE: (AM) PT COMPLETED SUPINE TO SIT WITH CGA/SBA. PT COMPLETED ADL MOB WITH SBA/CGA. PT COMPLETED FACEHYGIENE WITH SETUP. PT COMPLETED HAIR GROOMING WITH SETUP AT EOB. (PM) PT COMPLETED SERGIO/DOFF SOCKS WITH SBA. PT COMPLETED UE AROM EXS. [phone] THANK YOU,JEREMI WEAVER
[2019-10-20 16:47] VITALS: BP 115/46
--- NOTE | 2019-10-20 19:15 | NUR ---
ALERT AND ORIENTED. LEFT CHEST METAPORT SALINE LOCKED. PATIENT WEARING TELE. LUNG SOUNDS PRESENT WITH FRICTION RUB BILATERALLY. PATIENT BERONICA ALARM ON. DENIES PAIN AT THIS TIME. BEDSIDE COMMODE NEXT TO BED. CALL LIGHT CLOSE. CPOC.
[2019-10-20 20:00] VITALS: BP 123/56
--- NOTE | 2019-10-21 00:21 | NUR ---
HANGING MEDICATIONS. PATIENT AWAKE. DENIES PAIN OR DISCOMFORT. TOOK TELE OFF DURING SLEEP, REAPPLIED. DENIES FURTHER NEEDS. CPOC.
--- NOTE | 2019-10-21 02:47 | NUR ---
I have reviewed this patient and I concur with the Shift Assessment completed by the Licensed Practical Nurse today this shift.
[2019-10-21 04:00] VITALS: BP 137/61
--- NOTE | 2019-10-21 06:22 | NUR ---
INCONTINENT OF URINE. NO YELLOW GOWNS AVAILABLE AT THIS TIME. CHANGED TO REGULAR GOWN.
--- NOTE | 2019-10-21 07:52 | NUR ---
ALERT AND ORIENTED X3. LEFT MEDIPORT INTACT W/O ANY S/S OF INFECTION. O2 1 L N/C. TELEMETRY INTACT AND DENIES ANY CHEST PAIN OR DISCOMFORT. RESP EVEN AND UNLABORED WITH EXPORATORY WHEEZES NOTED TO BUQ ANTERIOR. DENIES ANY PAIN OR DISCOMFORT AT THIS TIME. ENCOURAGED TO USE CALL LIGHT FOR ASSSIT WITH FALL PRECAUTONS IN PLACE.
[2019-10-21 09:19] VITALS: BP 123/57
[2019-10-21 12:43] VITALS: BP 118/58
[2019-10-21 17:54] VITALS: BP 113/46
[2019-10-21 20:00] VITALS: BP 122/50
--- NOTE | 2019-10-21 22:55 | OP ---
PATIENT NAME: PRATEEK VELEZ MEDICAL RECORD: [id number] :[birth year] LOCATION:D.MS [facility] ADMISSION DATE:10/14/19 SURGEON: SERGE MOORE MD DATE OF OPERATION: 10/18/2019 ASSISTANCE NOTE I assisted Dr. Mike with an invasive bronchoscopic procedure. Dr. Mike performed the bronchoscopy. 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 Additionally, I advanced a 5-Persian Viktor catheter in an effort to pullback and release some debris from the bronchus, which we were trying to open. I placed a couple of napoleon on the patient's chest and also put the Glow 'N Tell tape on in order to help measure the length of the bronchus that was involved in the tumor. TRANSINT:[id number] Voice Confirmation ID: [id number] DOCUMENT ID: [id number] SERGE MOORE MD at 2255 CC: [id number] DICTATION DATE: 10/18/19 1602 TOOL FILER: 10/18/19 1841 ADM IN [facility] [address] [place] [address]
--- NOTE | 2019-10-21 23:55 | NUR ---
PT VERY CONFUSED...PULLED OUT ACCESS TO INFUSAPORT ABD PULLED OFF TELEMETRY. VERY FIGITY AND RESTLESS. REPLACED TELEMETRY. WILL NOT RE-ACCESS PORT AT THIS TIME FOR PT SAFETY. BED ALARM IN USE.
[2019-10-22] VITALS: BP 144/64
[2019-10-22 04:00] VITALS: BP 123/54
--- NOTE | 2019-10-22 07:40 | NUR ---
RESTING IN BED, NO DISTRESS NOTED, EYES CLOSED, REPORTED THAT PT WAS VERY CONFUSED AND COMBATIVE LAST HS, CONT TO MONITOR
[2019-10-22 08:00] VITALS: BP 115/49
--- NOTE | 2019-10-22 10:50 | NUR ---
REACCESSED PORT, KARINA WELL, WALKING WITH PT AT PRESENT
[2019-10-22 12:00] VITALS: BP 109/43
[2019-10-22 16:00] VITALS: BP 126/67
[2019-10-22 20:00] VITALS: BP 119/65
[2019-10-23] VITALS: BP 103/49
[2019-10-23 04:00] VITALS: BP 115/43
[2019-10-23 08:10] VITALS: BP 112/68
--- NOTE | 2019-10-23 08:34 | NUR ---
PT RESTING IN BED NO ACUTE DISTRESS NOTED AT THIS TIME. LEFT CHEST PORT ACCESSED AND SALINE LOC'D. DENIES PAIN OR FURTHER NEEDS AT THIS TIME. CL WITHIN REACH. ENCOURAGED TO CALL WITH NEEDS. CONTINUE POC
--- NOTE | 2019-10-23 09:44 | NUR ---
PT SITTING UP IN BED. NO ACUTE DISTRESS NOTED. MORNING MEDICATIONS ADMINISTERED PER MD ORDERS. DENIES FURTHER NEEDS AT THIS TIME. CL WITHIN REACH. ENCOURAGED TO CALL WITH NEEDS.
[2019-10-23 09:56] LABS: HEMOGLOBIN 10.2 g/dL (12-16); MCHC 30.9 g/dL (31.0-37.0); MCV 97.1 fL (80.0-100.0); PLATELET COUNT 543 10x3/uL (130-400); RDW 15.7 % (11.5-14.5); WBC 8.8 10x3/uL (4.8-10.8)
--- NOTE | 2019-10-23 10:17 | MORECARE ---
CASE MANAGEMENT DISCHARGE SUMMARY PATIENT: PRATEEK VELEZ UNIT: [id number] ADM DATE: 10/14/19 AGE: 74 : 45 SEX: F ROOM/BED: D.2202 AUTHOR: SUBHASH,DOC PHYSICIAN: REFERRING PHYSICIAN: RADHA VANN MD DATE OF SERVICE: 10/23/19 Discharge Plan Patient Name: PRATEEK VELEZ Facility: [facility]:[place] : 1945 Planned Disposition: Longterm Facility Anticipated Discharge Date: Discharge Date: Expected LOS: Initial Reviewer: [id number] Initial Review Date: 10/19/2019 Generated: 10/23/19 11:16 am Comments DCP- Discharge Planning Updated by [id number]: No Cota on 10/23/19 9:[address] SPOKE WITH DESTINEE AT [facility] THEY HAVE AUTH, WILL CALL ME BACK WITH A ASSEMBLER 1ST SHIFT TIME DCP- Discharge Planning Updated by [id number]: Destinee Long on 10/20/19 9:[address] Patient Name: PRATEEK VELEZ Admission Status: ER Accout number: [id number] Admission Date: 10-14-2019 : 1945 Admission Diagnosis:PNEUMONIA, UNSPECIFIED ORGANISM Attending: RADHA VANN Current LOS: 6 Anticipated DC Date: Planned Disposition: Longterm Facility Primary Insurance: [employer] CHOICE PPO MCR ADVANT Discharge Planning Comments: REFERRAL FAXED TO [facility]. COVID TEST RESULTS PENDING. CM TO FOLLOW AND ASSIST. Animal Care Attendant: Destinee Long DCP- Discharge Planning Updated by [email or web address]: Destinee Long on 10/19/19 9:[address] Patient Name: PRATEEK VELEZ Admission Status: ER Accout number: [id number] Admission Date: 10-14-2019 : 1945 Admission Diagnosis:PNEUMONIA, UNSPECIFIED ORGANISM Attending: RADHA VANN Current LOS: 5 Anticipated DC Date: Planned Disposition: Longterm Facility Primary Insurance: HU[employer] CHOICE PPO MCR ADVANT Discharge Planning Comments: CM met with patient at bedside after explaining CM role and obtaining verbal consent. CM discussed availability / needs of home health, REHAB and medical equipment.WOULD LIKE [facility]. OZ SIGNED, IMM SIGNED. HAS HOME O2 PROVIDED BY [facility]. CM WILL FOLLOW AND ASSIST NEEDED. Animal Care Attendant: Destinee Long Appended by Destinee Long on 10/19/2019 10:39 CDT: CM CALLED APS AT [phone] TO GET INFORMATION ON PATIENT AND TO SEE IF THEY ARE FOLLOWING HER, I LEFT MSG ON THE VOICEMAIL. WAITING CALL BACK FROM APS. DCP- Discharge Planning Updated by [id number]: Destinee Long on 10/18/19 1:[address] Patient Name: PRATEEK VELEZ Admission Status: ER Accout number: [id number] Admission Date: 10-14-2019 : 1945 Admission Diagnosis:PNEUMONIA, UNSPECIFIED ORGANISM Attending: RADHA VANN Current LOS: 4 Anticipated DC Date: Planned Disposition: Primary Insurance: [employer] PPO MCR ADVANT Discharge Planning Comments: PATIENT IS IN OR AT THIS TIME, I WILL COME BACK TO ASSESS. Animal Care Attendant: Destinee Long DCPIA - Discharge Planning Initial Assessment Updated by [id number]: Destinee Long on 10/19/19 10:17 am * Is the patient Alert and Oriented? Yes * PCP ONIEL * Pharmacy [facility] * Preadmission Environment Home Alone * ADLs Independent * Other Equipment 02, NEBS, O2 PORTABLE- [facility] * Additional services required to return to the preadmission environment? Yes * Can the patient safely return to the preadmission environment? No * Has this patient been hospitalized within the prior 30 days at any hospital? Yes Coverage Notice Reviewer: [id number] Yajaira Long Notice Issued Date-Time: 10/19/2019 10:32 Notice Type: IM Discharge Notice Notice Delivered To: Patient Relationship to Patient: Ground Host/Hostess Name: Delivery Method: HAND - Hand Delivered Alisha Days: Prior Verbal Notification: Recipient Understood Notice: Yes Recipient Signature: Yes Med Rec Note Co-signed by Attending: Coverage Notice Comment: Reviewer: [id number] Yajaira Long Notice Issued Date-Time: 10/19/2019 10:32 Notice Type: Patient Choice Letter Notice Delivered To: Patient Relationship to Patient: Ground Host/Hostess Name: Delivery Method: HAND - Hand Delivered Alisha Days: Prior Verbal Notification: Recipient Understood Notice: Yes Recipient Signature: Yes Med Rec Note Co-signed by Attending: Coverage Notice Comment: NANCY Meza DP export: 10/20/19 10:01 am Patient Name: PRATEEK VELEZ Page 42759 at 1017 All edits/amendments must be made on the electronic document DICTATION DATE: 10/23/19 1016 WALKING DRAGLINE OPERATOR: LAURA 10/23/19 1016 RPT#: [id number] DC DATE: STATUS: ADM IN [facility] [address] [place] [address] END OF REPORT
[2019-10-23 10:20] LABS: ALBUMIN 2.2 g/dL (3.4-5.0); ALKALINE PHOSPHATASE 80 U/L (30-120); ALT (SGPT) 11 U/L (10-68); BILIRUBIN - TOTAL 0.28 mg/dL (0.2-1.3); CALC OSMOLALITY 270 mosm/kg (275-300); CALCIUM 8.6 mg/dL (8.5-10.1); CARBON DIOXIDE 28.7 mmol/L (21.0-32.0); CHLORIDE - SERUM 101 mmol/L (98-107); CREATININE - SERUM 0.7 mg/dL (0.6-1.3); GLUCOSE 100 mg/dL (74-106); POTASSIUM - SERUM 3.2 mmol/L (3.5-5.1); PROTEIN - SERUM 7.1 g/dL (6.4-8.2); SODIUM 137 mmol/L (136-145); UREA NITROGEN 5 mg/dL (7-18); eGFR NON AFRICAN AMERICAN 87 mL/min (90-120)
[2019-10-23] MEDS ORDERED: TESSALON PERLE100 MG PO (10:24)
[2019-10-23] MEDS ORDERED: PROTONIX40 MG PO (10:25)
[2019-10-23] MEDS ORDERED: MUCINEX DM ER1 EAC1 PO (10:25)
[2019-10-23] MEDS ORDERED: ALBUTEROL2.5 MG/3 M INH (10:25)
--- NOTE | 2019-10-23 11:23 | MORECARE ---
CASE MANAGEMENT DISCHARGE SUMMARY PATIENT: PRATEEK VELEZ UNIT: [id number] ADM DATE: 10/14/19 AGE: 74 : 45 SEX: F ROOM/BED: D.2206 AUTHOR: SUBHASH,DOC PHYSICIAN: REFERRING PHYSICIAN: RADHA VANN MD DATE OF SERVICE: 10/23/19 Discharge Plan Patient Name: PRATEEK VELEZ Facility: [facility]:[place] : 1945 Planned Disposition: Senior Care Facility Anticipated Discharge Date: Discharge Date: Expected LOS: Initial Reviewer: [id number] Initial Review Date: 10/19/2019 Generated: 10/23/19 12:23 pm Comments DCP- Discharge Planning Updated by [email or web address]: No Cota on 10/23/19 10:[address] PATIENT WILL BE DISCHARGED TO [facility] TODAY TO A SKILLED BED. THEY WILL BE PICKING HER UP AT 12;30 . SHE WILL BE GOING TO ROOM 209. IMM SERVED AND EXPLAINED. I ASKED IF SHE WANTED ME TO CALL ANY FAMILY AND SHE DID NOT. CM TO FOLLOW AND ASSIST NEEDED DCP- Discharge Planning Updated by [id number]: No Cota on 10/23/19 9:[address] SPOKE WITH DESTINEE AT [facility] THEY HAVE AUTH, WILL CALL ME BACK WITH A AGENCY SERVICE REPRESENTATIVE TIME DCP- Discharge Planning Updated by [email or web address]: Destinee Long on 10/20/19 9:[address] Patient Name: PRATEEK VELEZ Admission Status: ER Accout number: [id number] Admission Date: 10-14-2019 : 1945 Admission Diagnosis:PNEUMONIA, UNSPECIFIED ORGANISM Attending: RADHA VANN Current LOS: 6 Anticipated DC Date: Planned Disposition: Senior Care Facility Primary Insurance: [employer] CHOICE PPO MCR ADVANT Discharge Planning Comments: REFERRAL FAXED TO [facility]. COVID TEST RESULTS PENDING. CM TO FOLLOW AND ASSIST. Award Machine Operator: Destinee Long DCP- Discharge Planning Updated by [id number]: Destinee Long on 10/19/19 9:[address] Patient Name: PRATEEK VELEZ Admission Status: ER Accout number: [id number] Admission Date: 10-14-2019 : 1945 Admission Diagnosis:PNEUMONIA, UNSPECIFIED ORGANISM Attending: RADHA VANN Current LOS: 5 Anticipated DC Date: Planned Disposition: Senior Care Facility Primary Insurance: [employer]NA CHOICE PPO MCR ADVANT Discharge Planning Comments: CM met with patient at bedside after explaining CM role and obtaining verbal consent. CM discussed availability / needs of home health, REHAB and medical equipment.WOULD LIKE [facility]. OZ SIGNED, IMM SIGNED. [facility]. CM WILL FOLLOW AND ASSIST NEEDED. Award Machine Operator: Destinee Long Appended by Destinee Long on 10/19/2019 10:39 CDT: CM CALLED APS AT [phone] TO GET INFORMATION ON PATIENT AND TO SEE IF THEY ARE FOLLOWING HER, I LEFT MS ON THE VOICEMAIL. WAITING CALL BACK FROM APS. DCP- Discharge Planning Updated by [id number]: Destinee Long on 10/18/19 1:[address] Patient Name: PRATEEK VELEZ Admission Status: ER Accout number: [id number] Admission Date: 10-14-2019 : 1945 Admission Diagnosis:PNEUMONIA, UNSPECIFIED ORGANISM Attending: RADHA VANN Current LOS: 4 Anticipated DC Date: Planned Disposition: Primary Insurance: [employer] CHOICE PPO MCR ADVANT Discharge Planning Comments: PATIENT IS IN OR AT THIS TIME, I WILL COME BACK TO ASSESS. Award Machine Operator: Destinee Long DCPIA - Discharge Planning Initial Assessment Updated by [email or web address]: Destinee Long on 10/19/19 10:17 am * Is the patient Alert and Oriented? Yes * PCP ONIEL * Pharmacy [facility] * Preadmission Environment Home Alone * ADLs Independent * Other Equipment 02, NEBS, O2 PORTABLE- [facility] * Additional services required to return to the preadmission environment? Yes * Can the patient safely return to the preadmission environment? No * Has this patient been hospitalized within the prior 30 days at any hospital? Yes Coverage Notice Reviewer: [id number] Yajaira Long Notice Issued Date-Time: 10/19/2019 10:32 Notice Type: IM Discharge Notice Notice Delivered To: Patient Relationship to Patient: Special Equipment Technician Name: Delivery Method: HAND - Hand Delivered Alisha Days: Prior Verbal Notification: Recipient Understood Notice: Yes Recipient Signature: Yes Med Rec Note Co-signed by Attending: Coverage Notice Comment: Reviewer: [id number] Yajaira Long Notice Issued Date-Time: 10/19/2019 10:32 Notice Type: Patient Choice Letter Notice Delivered To: Patient Relationship to Patient: Special Equipment Technician Name: Delivery Method: HAND - Hand Delivered Alisha Days: Prior Verbal Notification: Recipient Understood Notice: Yes Recipient Signature: Yes Med Rec Note Co-signed by Attending: Coverage Notice Comment: NANCY MICHELLE Reviewer: [id number] - No Cota Notice Issued Date-Time: 10/23/2019 11:18 Notice Type: IM Discharge Notice Notice Delivered To: Patient Relationship to Patient: Special Equipment Technician Name: Delivery Method: HAND - Hand Delivered Alisha Days: Prior Verbal Notification: Recipient Understood Notice: Yes Recipient Signature: Yes Med Rec Note Co-signed by Attending: Coverage Notice Comment: Last DP export: 10/23/19 9:17 a Patient Name: PRATEEK VELEZ Page [id number] at 1123 All edits/amendments must be made on the electronic document DICTATION DATE: 10/23/191122 BEVELING MACHINE OPERATOR: LAURA 10/23/19 1123 RPT#: [id number] DC DATE: STATUS: ADM IN [facility] [address] [place] [address] END OF REPORT
--- NOTE | 2019-10-23 11:23 | NUR ---
REPORT CALLED TO PADMINI AT [facility].
--- NOTE | 2019-10-23 11:31 | NUR ---
PT PORT FLUSHED WITH HEPARIN AND DE-ACCESSED FOR DISCHARGE AND COVERED WITH DRESSING. PT KARINA WELL. DISCHARGE PAPERWORK DISCUSSED WITH PT AND SIGNED BY PT. DENIES FURTHER QUESTIONS AT THIS TIME.
--- NOTE | 2019-10-23 12:17 | NUR ---
NO COMPLAINT OF DISCOMFORT/TENDERNESS TO BOTTOM OR HEELS. NO SIGN OF BREAKDOWN. PT UP WITH PHYSICAL THERAPY AND CAN TURN/REPOSITION HERSELF.
[2019-10-23 12:43] LABS: EOSINOPHILS 3 % (0-7); LYMPHOCYTES 8 % (15-50); MONOCYTES 15 % (2-11); NEUTROPHILS 71 % (40-80)
[2019-10-23 12:44] LABS: ANISOCYTOSIS OCC; PLATELET ESTIMATE INCREASED; ROULEAUX OCC
--- NOTE | 2019-10-23 13:03 | MORECARE ---
CASE MANAGEMENT DISCHARGE SUMMARY PATIENT: PRATEEK VELEZ UNIT: [id number] ADM DATE: 10/14/19 AGE: 74 : 45 SEX: F ROOM/BED: D.2206 AUTHOR: SUBHASH,DOC PHYSICIAN: REFERRING PHYSICIAN: RADHA VANN MD DATE OF SERVICE: 10/23/19 Discharge Plan Patient Name: PRATEEK VELEZ Facility: [facility]:[place] : 1945 Planned Disposition: Custodial Facility Anticipated Discharge Date: Discharge Date: 10/23/2019 Expected LOS: 0 Initial Reviewer: [email or web address] Initial Review Date: 10/19/2019 Generated: 10/23/19 2:03 pm Comments DCP- Discharge Planning Updated by [email or web address]: No Cota on 10/23/19 10:[address] PATIENT WILL BE DISCHARGED TO [facility] TODAY TO A SKILLED BED. THEY WILL BE PICKING HER UP AT 12;30 . SHE WILL BE GOING TO ROOM 209. IMM SERVED AND EXPLAINED. I ASKED IF SHE WANTED ME TO CALL ANY FAMILY AND SHE DID NOT. CM TO FOLLOW AND ASSIST NEEDED DCP- Discharge Planning Updated by [email or web address]: No Cota on 10/23/19 9:[address] SPOKE WITH DESTINEE AT [facility] THEY HAVE AUTH, WILL CALL ME BACK WITH A RADIO OPERATOR GROUND TIME DCP- Discharge Planning Updated by [email or web address]: Destinee Long on 10/20/19 9:[address] Patient Name: PRATEEK VELEZ Admission Status: ER Accout number: [id number] Admission Date: 10-14-2019 : 1945 Admission Diagnosis:PNEUMONIA, UNSPECIFIED ORGANISM Attending: RADHA VANN Current LOS: 6 Anticipated DC Date: Planned Disposition: Custodial Facility Primary Insurance: [employer] CHOICE PPO MCR ADVANT Discharge Planning Comments: REFERRAL FAXED TO [facility]. COVID TEST RESULTS PENDING. CM TO FOLLOW AND ASSIST. Group Sales Manager: Destinee Long DCP- Discharge Planning Updated by [email or web address]: Destinee Long on 10/19/19 9:[address] Patient Name: PRATEEK VELEZ Admission Status: ER Accout number: [id number] Admission Date: 10-14-2019 : 1945 Admission Diagnosis:PNEUMONIA, UNSPECIFIED ORGANISM Attending: RADHA VANN Current LOS: 5 Anticipated DC Date: Planned Disposition: Custodial Facility Primary Insurance: [employer] CHOICE PPO MCR ADVANT Discharge Planning Comments: CM met with patient at bedside after explaining CM role and obtaining verbal consent. CM discussed availability / needs of home health, REHAB and medical equipment.WOULD LIKE [facility]. OZ SIGNED, IMM SIGNED. [facility] CM WILL FOLLOW AND ASSIST NEEDED. Group Sales Manager: Destinee Long Appended by Destinee Long on 10/19/2019 10:39 CDT: CM CALLED [facility] AT [phone] TO GET INFORMATION ON PATIENT AND TO SEE IF THEY ARE FOLLOWING HER, I LEFT MS ON THE VOICEMAIL. WAITING CALL BACK FROM [facility]. DCP- Discharge Planning Updated by [email or web address]: Destinee Long on 10/18/19 1:[address] Patient Name: PRATEEK VELEZ Admission Status: ER Accout number: [id number] Admission Date: 10-14-2019 : 1945 Admission Diagnosis:PNEUMONIA, UNSPECIFIED ORGANISM Attending: RADHA VANN Current LOS: 4 Anticipated DC Date: Planned Disposition: Primary Insurance: [employer] CHOICE PPO MCR ADVANT Discharge Planning Comments: PATIENT IS IN OR AT THIS TIME, I WILL COME BACK TO ASSESS. Group Sales Manager: Destinee Long DCPIA - Discharge Planning Initial Assessment Updated by [email or web address]: Destinee Long on 10/19/19 10:17 am * Is the patient Alert and Oriented? Yes * PCP [facility] * [facility] * Preadmission Environment Home Alone * ADLs Independent * Other Equipment 02, NEBS, [facility] * Additional services required to return to the preadmission environment? Yes * Can the patient safely return to the preadmission environment? No * Has this patient been hospitalized within the prior 30 days at any hospital? Yes Coverage Notice Reviewer: [id number] Yajaira Long Notice Issued Date-Time: 10/19/2019 10:32 Notice Type: IM Discharge Notice Notice Delivered To: Patient Relationship to Patient: Private Branch Exchange Operator Name: Delivery Method: HAND - Hand Delivered Alisha Days: Prior Verbal Notification: Recipient Understood Notice: Yes Recipient Signature: Yes Med Rec Note Co-signed by Attending: Coverage Notice Comment: Reviewer: [id number] Yajaira Long Notice Issued Date-Time: 10/19/2019 10:32 Notice Type: Patient Choice Letter Notice Delivered To: Patient Relationship to Patient: Private Branch Exchange Operator Name: Delivery Method: HAND - Hand Delivered Alisha Days: Prior Verbal Notification: Recipient Understood Notice: Yes Recipient Signature: Yes Med Rec Note Co-signed by Attending: Coverage Notice Comment: NANCY MICHELLE Reviewer: [email or web address] Yajaira Cota Notice Issued Date-Time: 10/23/2019 11:18 Notice Type: IM Discharge Notice Notice Delivered To: Patient Relationship to Patient: Private Branch Exchange Operator Name: Delivery Method: HAND - Hand Delivered Alisha Days: Prior Verbal Notification: Recipient Understood Notice: Yes Recipient Signature: Yes Med Rec Note Co-signed by Attending: Coverage Notice Comment: Last DP export: 10/23/19 10:23 a Patient Name: PRATEEK VELEZ Page [id number] at 1303 All edits/amendments must be made on the electronic document DICTATION DATE: 10/23/19 1303 [employer] SUPERVISOR: LAURA 10/23/19 1303 RPT#: [id number] DC DATE:10/23/19 STATUS: DIS IN [facility] [address] [place] [address] END OF REPORT
--- NOTE | 2019-10-23 15:57 | NUR ---
OT NOTE: PT COMPLETED ADL MOB WITH RW REQUIRED CGA/SBA. PT COMPLETED HYGIENE TASKS AT SINK LEVEL WITH SBA. [phone] THANK YOU,JEREMI WEAVER
== END 2019-10-23 12:32 | DRG 163 ==
LOC: D.ER 21:54 → D.MS 22:52
PROVIDERS: Family Medicine; Internal Medicine Pulmonary Disease; ADMIT Internal Medicine Nephrology; ATTEND Internal Medicine Nephrology
PROC: 0B5 Respiratory System, Destruction (ICD-10-PCS; principal; 2019-10-14)
PROC: 0BBB8ZZ Excision of Left Lower Lobe Bronchus, Via Natural or Artificial Opening Endoscopic (ICD-10-PCS; 2019-10-14)
PROC: 0B9J7ZX Drainage of Left Lower Lung Lobe, Via Natural or Artificial Opening, Diagnostic (ICD-10-PCS; 2019-10-14)
DX: J18.9 Pneumonia, unspecified organism (principal); E43 Unspecified severe protein-calorie malnutrition; J96.21 Acute and chronic respiratory failure with hypoxia; J96.11 Chronic respiratory failure with hypoxia; J90 Pleural effusion, not elsewhere classified; Z68.1 Body mass index [BMI] 19.9 or less, adult; C34.90 Malignant neoplasm of unspecified part of unspecified bronchus or lung; I10 Essential (primary) hypertension; E78.5 Hyperlipidemia, unspecified; F41.8 Other specified anxiety disorders; D50.9 Iron deficiency anemia, unspecified; J43.9 Emphysema, unspecified; Z87.891 Personal history of nicotine dependence